=== PATIENT | female | born 1970 | race Caucasian/White ===

== ENCOUNTER 2022-04-27 15:49 | Inpatient (IN) ==
[2022-04-27] MEDS ORDERED: ALBUTEROL/IPRATROPIUM 3 ML NEB RESP TX STA (16:29)
[2022-04-27 17:00] LABS: Basophils # 0.1 10*3/uL (0.0-0.2); Basophils % 0.6 % (0.0-0.8); Eosinophils % 0.5 % (0.00-10.9); Hematocrit 41.5 VOL% (35.7-47.0); Hemoglobin 13.3 GM/DL (12.0-16.0); Immature Granulocytes % 0.5 %; Immature Granulocytes Absolute 0.04 #; Lymphocytes # 0.6 10*3/uL (1.4-4.0); Lymphocytes % 7.6 % (21.3-54.2); Mean Corpuscular Volume 93.5 FL (87-102); Mean Platelet Volume 10.5 FL (9.6-12.0); Monocytes # 0.2 10*3/uL (0.11-0.8); Monocytes % 2.9 % (1.7-12.7); Neutrophils % 87.9 % (38.7-73.9); Platelet Count 201 T/CUMM (130-400); Red Blood Count 4.44 MC/CUMM (3.8-5.5); Red Cell Distribution Width 13.9 % (9.3-17.3); White Blood Count 8.3 T/CUMM (4-12)
[2022-04-27 17:11] LABS: INR 1.3; Partial Thromboplastin Time 30.9 SECS (23.7-32.9)
[2022-04-27 17:33] LABS: Albumin 4.5 G/DL (3.4-5.0); Bilirubin,Total 1.2 MG/DL (0.20-1.00); Calcium 9.7 MG/DL (8.5-10.1); Osmolality,Calculated 277.1 MOS/KG (273-304); Total Protein 8.3 G/DL (6.4-8.2)
[2022-04-27 19:01] LABS: Bacteria,Urine Occasional /HPF (Few); Bilirubin,Urine Negative (Negative); Blood, Urine Small mg/dL (Negative); Glucose,Urine (UA) 50 mg/dL (Negative); Ketones,Urine Negative (Negative); Mucus,Urine Moderate /LPF (Occasional); Nitrite,Urine Negative (Negative); Protein,Urine 30 mg/dL (Negative); Squamous Epithelial Cell,Urine Few /HPF (0-10); Urine Appearance CLOUDY (Clear); Urine Color Yellow (Yellow); Urine Specific Gravity 1.027 (1.001-1.035); Urine Urobilinogen < 2.0 eU/dL (<2.0)
[2022-04-27] MEDS ORDERED: FUROSEMIDE 100 MG/10 ML VIAL ONE (19:23)
[2022-04-27] MEDS ORDERED: FUROSEMIDE 40 MG/4 ML VIAL IV STA (19:24)
[2022-04-27] MEDS ORDERED: LEVOFLOXACIN INJ 500 MG/100 ML PREMIX IV STA (19:25)
[2022-04-27] MEDS ORDERED: LEVOFLOXACIN INJ 500 MG/100 ML PREMIX IV ONE (19:26)
[2022-04-27] MEDS ORDERED: guaiFENesin/DM ER 600-30 MG TABLET PO PRN (19:55)
[2022-04-27] MEDS ORDERED: hydrALAZINE 20 MG/1 ML VIAL IV PRN (19:55)
[2022-04-27] MEDS ORDERED: ONDANSETRON 4 MG TABLET PO PRN (19:58)
[2022-04-27] MEDS ORDERED: ATORVASTATIN 10 MG TABLET PO SCH (21:00)
[2022-04-27] MEDS: FERROUS SULFATE 325 MG TABLET PO SCH (21:10)
[2022-04-27] MEDS: ENOXAPARIN 80 MG/0.8 ML SYRINGE SUBCUT SCH (21:15)
[2022-04-27] MEDS: INSULIN REGULAR 100 UNIT/ML SUBCUT SCH (21:19)
[2022-04-27] MEDS: ONDANSETRON 4 MG/2 ML VIAL IV PRN (21:50)
[2022-04-28] MEDS: ALBUTEROL 2.5 MG/3 ML NEB RESP TX SCH ×5 (00:55→19:30)
[2022-04-28] MEDS ORDERED: INFLUENZA VIRUS VACCINE 0.5 ML SYRINGE IM ONE (00:57)
[2022-04-28 04:58] LABS: Basophils % 0.4 % (0.0-0.8); Eosinophils % 0.1 % (0.00-10.9); Hematocrit 37.7 VOL% (35.7-47.0); Hemoglobin 12.3 GM/DL (12.0-16.0); Immature Granulocytes % 0.7 %; Immature Granulocytes Absolute 0.05 #; Lymphocytes % 13.4 % (21.3-54.2); Mean Corpuscular HGB Conc 32.6 GM/DL (32-36); Mean Corpuscular Volume 92.4 FL (87-102); Mean Platelet Volume 10.7 FL (9.6-12.0); Monocytes # 0.3 10*3/uL (0.11-0.8); Monocytes % 4.8 % (1.7-12.7); Neutrophils % 80.6 % (38.7-73.9); Platelet Count 195 T/CUMM (130-400); Red Blood Count 4.08 MC/CUMM (3.8-5.5); Red Cell Distribution Width 13.9 % (9.3-17.3); White Blood Count 7.1 T/CUMM (4-12)
[2022-04-28 05:07] LABS: INR 1.3; PT Patient Result 13.9 SECS (10.1-12.1)
[2022-04-28] MEDS: LEVOTHYROXINE 75 MCG TABLET PO SCH (05:08)
[2022-04-28 05:17] LABS: Albumin 3.6 G/DL (3.4-5.0); Bilirubin,Total 1.3 MG/DL (0.20-1.00); Calcium 8.9 MG/DL (8.5-10.1); Osmolality,Calculated 272.4 MOS/KG (273-304); Risk Ratio 4.44; Total Protein 7.4 G/DL (6.4-8.2); VLDL Cholesterol 24.8 MG/DL
[2022-04-28] MEDS ORDERED: MAGNESIUM SULF RIDER 2 GM/50 ML PREMIX IV ONE (07:41)
[2022-04-28] MEDS: PANTOPRAZOLE 40 MG TABLET PO SCH (09:00)
[2022-04-28] MEDS ORDERED: LEVOTHYROXINE 200 MCG TABLET PO SCH (09:00)
[2022-04-28] MEDS: DULoxetine 30 MG CAPSULE PO SCH (09:00)
[2022-04-28] MEDS: FERROUS SULFATE 325 MG TABLET PO SCH ×2 (09:00→22:26)
[2022-04-28] MEDS: FUROSEMIDE 40 MG/4 ML VIAL IV SCH ×2 (09:00→16:00)
[2022-04-28] MEDS: ASPIRIN EC 81 MG TABLET PO SCH (09:00)
[2022-04-28] MEDS: POTASSIUM CHLORIDE 20 MEQ TABLET PO SCH (09:00)
[2022-04-28] MEDS: ENOXAPARIN 80 MG/0.8 ML SYRINGE SUBCUT SCH ×2 (09:01→22:27)
[2022-04-28] MEDS: METOPROLOL TARTRATE 25 MG TABLET PO SCH (09:09)
[2022-04-28] MEDS: INSULIN REGULAR 100 UNIT/ML SUBCUT SCH ×4 (09:12→22:26)
[2022-04-28] MEDS: ONDANSETRON 4 MG/2 ML VIAL IV PRN ×2 (14:54→22:26)
[2022-04-28] MEDS ORDERED: WARFARIN 5 MG TABLET PO SCH (18:00)
[2022-04-28] MEDS ORDERED: WARFARIN 3 MG TABLET PO SCH (18:00)
[2022-04-28] MEDS ORDERED: LEVOFLOXACIN INJ 500 MG/100 ML PREMIX IV SCH (21:00)
[2022-04-28] MEDS: ATORVASTATIN 40 MG TABLET PO SCH (22:26)
[2022-04-28] MEDS: ACETAMINOPHEN 325 MG TABLET PO PRN (23:49)
[2022-04-29] MEDS: ALBUTEROL 2.5 MG/3 ML NEB RESP TX SCH ×2 (00:30→07:04)
[2022-04-29 05:09] LABS: Basophils % 0.1 % (0.0-0.8); Hematocrit 33.4 VOL% (35.7-47.0); Hemoglobin 11.3 GM/DL (12.0-16.0); Immature Granulocytes % 0.8 %; Immature Granulocytes Absolute 0.06 #; Lymphocytes % 12.5 % (21.3-54.2); Mean Corpuscular HGB Conc 33.8 GM/DL (32-36); Mean Corpuscular Volume 89.1 FL (87-102); Mean Platelet Volume 10.6 FL (9.6-12.0); Monocytes # 0.3 10*3/uL (0.11-0.8); Monocytes % 3.9 % (1.7-12.7); Neutrophils % 82.7 % (38.7-73.9); Platelet Count 187 T/CUMM (130-400); Red Blood Count 3.75 MC/CUMM (3.8-5.5); White Blood Count 7.7 T/CUMM (4-12)
[2022-04-29 05:28] LABS: Calcium 9.3 MG/DL (8.5-10.1); Osmolality,Calculated 272.5 MOS/KG (273-304); Potassium 3.6 MMOL/L (3.5-5.1)
[2022-04-29] MEDS: LEVOTHYROXINE 75 MCG TABLET PO SCH (06:58)
[2022-04-29] MEDS ORDERED: MAGNESIUM SULF RIDER 2 GM/50 ML PREMIX IV ONE (07:47)
[2022-04-29 07:51] LABS: INR 1.2; PT Patient Result 13.2 SECS (10.1-12.1)
[2022-04-29] MEDS: FUROSEMIDE 40 MG/4 ML VIAL IV SCH ×2 (08:46→15:48)
[2022-04-29] MEDS: ENOXAPARIN 80 MG/0.8 ML SYRINGE SUBCUT SCH (08:48)
[2022-04-29] MEDS: ASPIRIN EC 81 MG TABLET PO SCH (08:49)
[2022-04-29] MEDS: POTASSIUM CHLORIDE 20 MEQ TABLET PO SCH (08:49)
[2022-04-29] MEDS: METOPROLOL TARTRATE 25 MG TABLET PO SCH (08:49)
[2022-04-29] MEDS: DULoxetine 30 MG CAPSULE PO SCH (08:49)
[2022-04-29] MEDS: FERROUS SULFATE 325 MG TABLET PO SCH ×2 (08:50→21:27)
[2022-04-29] MEDS: PANTOPRAZOLE 40 MG TABLET PO SCH (08:50)
[2022-04-29] MEDS: INSULIN REGULAR 100 UNIT/ML SUBCUT SCH ×4 (08:55→21:27)
[2022-04-29] MEDS ORDERED: ALBUTEROL 2.5 MG/3 ML NEB RESP TX PRN (09:38)
[2022-04-29] MEDS ORDERED: LACTULOSE 20 GM/30 ML UDCUP PO ONE (10:17)
[2022-04-29] MEDS: ALBUTEROL/IPRATROPIUM 3 ML NEB RESP TX SCH ×2 (13:30→19:10)
[2022-04-29] MEDS: WARFARIN 10 MG TABLET PO SCH (17:45)
[2022-04-29] MEDS: ENOXAPARIN 150 MG/ML SYRINGE SUBCUT SCH (21:25)
[2022-04-29] MEDS: ACETAMINOPHEN 325 MG TABLET PO PRN (21:26)
[2022-04-29] MEDS: ATORVASTATIN 40 MG TABLET PO SCH (21:26)
[2022-04-30] MEDS: ALBUTEROL/IPRATROPIUM 3 ML NEB RESP TX SCH ×4 (00:30→20:12)
[2022-04-30] MEDS: ACETAMINOPHEN 325 MG TABLET PO PRN ×2 (04:45→10:26)
[2022-04-30 05:17] LABS: Basophils % 0.3 % (0.0-0.8); Eosinophils % 0.1 % (0.00-10.9); Hematocrit 32.4 VOL% (35.7-47.0); Hemoglobin 10.9 GM/DL (12.0-16.0); Immature Granulocytes % 0.6 %; Immature Granulocytes Absolute 0.05 #; Lymphocytes # 1.2 10*3/uL (1.4-4.0); Lymphocytes % 15.1 % (21.3-54.2); Mean Corpuscular HGB Conc 33.6 GM/DL (32-36); Mean Corpuscular Volume 89.8 FL (87-102); Mean Platelet Volume 10.9 FL (9.6-12.0); Monocytes # 0.3 10*3/uL (0.11-0.8); Monocytes % 3.5 % (1.7-12.7); Neutrophils % 80.4 % (38.7-73.9); Platelet Count 207 T/CUMM (130-400); Red Blood Count 3.61 MC/CUMM (3.8-5.5); Red Cell Distribution Width 13.9 % (9.3-17.3); White Blood Count 7.7 T/CUMM (4-12)
[2022-04-30 05:23] LABS: INR 1.5; PT Patient Result 16.4 SECS (10.1-12.1)
[2022-04-30 05:32] LABS: Calcium 9.2 MG/DL (8.5-10.1); Osmolality,Calculated 266.8 MOS/KG (273-304); Potassium 3.5 MMOL/L (3.5-5.1)
[2022-04-30] MEDS: LEVOTHYROXINE 75 MCG TABLET PO SCH (06:31)
[2022-04-30] MEDS: INSULIN REGULAR 100 UNIT/ML SUBCUT SCH ×4 (08:32→21:57)
[2022-04-30] MEDS: FUROSEMIDE 40 MG/4 ML VIAL IV SCH ×2 (08:33→15:50)
[2022-04-30] MEDS: FERROUS SULFATE 325 MG TABLET PO SCH ×2 (08:33→21:57)
[2022-04-30] MEDS: POTASSIUM CHLORIDE 20 MEQ TABLET PO SCH (08:33)
[2022-04-30] MEDS: PANTOPRAZOLE 40 MG TABLET PO SCH (08:34)
[2022-04-30] MEDS: DULoxetine 30 MG CAPSULE PO SCH (08:34)
[2022-04-30] MEDS: ASPIRIN EC 81 MG TABLET PO SCH (08:34)
[2022-04-30] MEDS: METOPROLOL TARTRATE 25 MG TABLET PO SCH ×2 (08:34→21:57)
[2022-04-30] MEDS: ENOXAPARIN 150 MG/ML SYRINGE SUBCUT SCH ×2 (08:35→21:57)
[2022-04-30] MEDS: LEVOFLOXACIN INJ 750 MG/150 ML PREMIX IV SCH (08:52)
[2022-04-30] MEDS: LACTULOSE 20 GM/30 ML UDCUP PO SCH ×2 (09:35→21:57)
[2022-04-30] MEDS ORDERED: SODIUM CHLORIDE 0.65% NASAL SPRAY 45 ML BOTTLE BOTH NARES PRN (12:33)
[2022-04-30] MEDS: WARFARIN 10 MG TABLET PO SCH (17:18)
[2022-04-30] MEDS: ATORVASTATIN 40 MG TABLET PO SCH (21:57)
[2022-05-01] MEDS: ALBUTEROL/IPRATROPIUM 3 ML NEB RESP TX SCH ×4 (00:08→19:38)
[2022-05-01 04:58] LABS: Basophils % 0.4 % (0.0-0.8); Hematocrit 31.8 VOL% (35.7-47.0); Hemoglobin 10.7 GM/DL (12.0-16.0); Immature Granulocytes % 0.7 %; Immature Granulocytes Absolute 0.05 #; Lymphocytes # 1.2 10*3/uL (1.4-4.0); Lymphocytes % 17.4 % (21.3-54.2); Mean Corpuscular HGB Conc 33.6 GM/DL (32-36); Mean Corpuscular Volume 88.3 FL (87-102); Mean Platelet Volume 11.1 FL (9.6-12.0); Monocytes # 0.2 10*3/uL (0.11-0.8); Monocytes % 2.6 % (1.7-12.7); Neutrophils % 78.9 % (38.7-73.9); Platelet Count 226 T/CUMM (130-400); Red Cell Distribution Width 13.7 % (9.3-17.3)
[2022-05-01 05:07] LABS: INR 2.1; PT Patient Result 21.7 SECS (10.1-12.1)
[2022-05-01 05:23] LABS: Calcium 9.6 MG/DL (8.5-10.1); Osmolality,Calculated 264.4 MOS/KG (273-304); Potassium 3.8 MMOL/L (3.5-5.1)
[2022-05-01] MEDS: LEVOTHYROXINE 75 MCG TABLET PO SCH (06:29)
[2022-05-01] MEDS: LEVOFLOXACIN INJ 750 MG/150 ML PREMIX IV SCH (08:05)
[2022-05-01] MEDS: ENOXAPARIN 150 MG/ML SYRINGE SUBCUT SCH ×2 (08:07→21:59)
[2022-05-01] MEDS: DULoxetine 30 MG CAPSULE PO SCH (08:07)
[2022-05-01] MEDS: POTASSIUM CHLORIDE 20 MEQ TABLET PO SCH (08:08)
[2022-05-01] MEDS: ASPIRIN EC 81 MG TABLET PO SCH (08:08)
[2022-05-01] MEDS: PANTOPRAZOLE 40 MG TABLET PO SCH (08:08)
[2022-05-01] MEDS: METOPROLOL TARTRATE 25 MG TABLET PO SCH (08:08)
[2022-05-01] MEDS: FUROSEMIDE 40 MG/4 ML VIAL IV SCH (08:09)
[2022-05-01] MEDS: FERROUS SULFATE 325 MG TABLET PO SCH ×2 (08:10→21:59)
[2022-05-01] MEDS: INSULIN REGULAR 100 UNIT/ML SUBCUT SCH ×4 (08:10→21:59)
[2022-05-01] MEDS: LACTULOSE 20 GM/30 ML UDCUP PO SCH (08:11)
[2022-05-01] MEDS ORDERED: METOPROLOL TARTRATE 25 MG TABLET PO ONE (10:30)
[2022-05-01] MEDS ORDERED: BISACODYL 10 MG SUPP RECTAL ONE (11:07)
[2022-05-01] MEDS ORDERED: metOLazone 5 MG TABLET PO SCH (14:30)
[2022-05-01] MEDS ORDERED: FUROSEMIDE 40 MG/4 ML VIAL IV SCH (16:00)
[2022-05-01] MEDS: WARFARIN 7.5 MG TABLET PO SCH (17:48)
[2022-05-01] MEDS ORDERED: INSULIN GLARGINE 100 UNIT/ML SUBCUT SCH (21:00)
[2022-05-01] MEDS: ATORVASTATIN 40 MG TABLET PO SCH (21:59)
[2022-05-01] MEDS: METOPROLOL TARTRATE 50 MG TABLET PO SCH (21:59)
[2022-05-01] MEDS: ACETAMINOPHEN 325 MG TABLET PO PRN (21:59)
[2022-05-02] MEDS: ALBUTEROL/IPRATROPIUM 3 ML NEB RESP TX SCH ×4 (00:53→19:33)
[2022-05-02 05:12] LABS: Basophils % 0.1 % (0.0-0.8); Hematocrit 30.4 VOL% (35.7-47.0); Hemoglobin 10.3 GM/DL (12.0-16.0); Immature Granulocytes % 1.5 %; Lymphocytes % 14.8 % (21.3-54.2); Mean Corpuscular HGB Conc 33.9 GM/DL (32-36); Mean Corpuscular Volume 88.4 FL (87-102); Mean Platelet Volume 10.3 FL (9.6-12.0); Monocytes # 0.3 10*3/uL (0.11-0.8); Monocytes % 4.6 % (1.7-12.7); NRBC # 0.02 10*3/uL; Platelet Count 235 T/CUMM (130-400); Red Blood Count 3.44 MC/CUMM (3.8-5.5); Red Cell Distribution Width 13.4 % (9.3-17.3); White Blood Count 6.8 T/CUMM (4-12)
[2022-05-02 05:24] LABS: INR 2.4; PT Patient Result 24.5 SECS (10.1-12.1)
[2022-05-02 05:27] LABS: Calcium 9.5 MG/DL (8.5-10.1); Osmolality,Calculated 271.7 MOS/KG (273-304)
[2022-05-02] MEDS: LEVOTHYROXINE 75 MCG TABLET PO SCH (06:24)
[2022-05-02 08:04] LABS: Arterial Base Excess iSTAT 7 MMOL/L (-2.5-2.5); Arterial Bicarbonate iSTAT 29.8 MMOL/L (20-26); Arterial O2 Saturation iSTAT 91 % (95-100); Arterial PCO2 iSTAT 37 MM HG (35-48); Arterial PO2 iSTAT 54 MM HG (80-95); Arterial Total CO2 iSTAT 31 MMO/L (23-27); Arterial pH iSTAT 7.518 (7.35-7.45)
[2022-05-02] MEDS: INSULIN REGULAR 100 UNIT/ML SUBCUT SCH ×4 (09:46→21:59)
[2022-05-02] MEDS: ONDANSETRON 4 MG/2 ML VIAL IV PRN (09:47)
[2022-05-02] MEDS: ENOXAPARIN 150 MG/ML SYRINGE SUBCUT SCH (09:48)
[2022-05-02] MEDS: MEROPENEM 500 MG in SODIUM CHLORIDE 0.9% 100 ML IV SCH ×3 (09:48→21:59)
[2022-05-02] MEDS: FUROSEMIDE 40 MG/4 ML VIAL IV SCH ×2 (09:49→16:01)
[2022-05-02] MEDS: DULoxetine 30 MG CAPSULE PO SCH (09:50)
[2022-05-02] MEDS: PANTOPRAZOLE 40 MG TABLET PO SCH (09:50)
[2022-05-02] MEDS: METOPROLOL TARTRATE 50 MG TABLET PO SCH ×2 (09:51→21:59)
[2022-05-02] MEDS: ASPIRIN EC 81 MG TABLET PO SCH (09:51)
[2022-05-02] MEDS: POTASSIUM CHLORIDE 20 MEQ TABLET PO SCH ×3 (09:52→12:19)
[2022-05-02] MEDS: FERROUS SULFATE 325 MG TABLET PO SCH ×2 (09:53→21:59)
[2022-05-02] MEDS ORDERED: POTASSIUM CHLORIDE 20 MEQ TABLET PO ONE (10:30)
[2022-05-02] MEDS: methylPREDNISolone SOD SUC 40 MG/1 ML VIAL IV SCH ×2 (12:17→17:55)
[2022-05-02] MEDS: WARFARIN 7.5 MG TABLET PO SCH (17:54)
[2022-05-02] MEDS: ACETAMINOPHEN 325 MG TABLET PO PRN (17:57)
[2022-05-02] MEDS ORDERED: INSULIN GLARGINE 100 UNIT/ML SUBCUT SCH (21:00)
[2022-05-02] MEDS: ATORVASTATIN 40 MG TABLET PO SCH (21:59)
[2022-05-03] MEDS: ALBUTEROL/IPRATROPIUM 3 ML NEB RESP TX SCH ×4 (00:12→19:19)
[2022-05-03] MEDS: ACETAMINOPHEN 325 MG TABLET PO PRN (00:28)
[2022-05-03] MEDS: methylPREDNISolone SOD SUC 40 MG/1 ML VIAL IV SCH ×3 (02:43→14:46)
[2022-05-03 05:41] LABS: Hematocrit 29.9 VOL% (35.7-47.0); Hemoglobin 10.2 GM/DL (12.0-16.0); Immature Granulocytes % 1.7 %; Immature Granulocytes Absolute 0.15 #; Lymphocytes # 0.9 10*3/uL (1.4-4.0); Mean Corpuscular HGB Conc 34.1 GM/DL (32-36); Mean Corpuscular Volume 88.5 FL (87-102); Mean Platelet Volume 10.3 FL (9.6-12.0); Monocytes # 0.4 10*3/uL (0.11-0.8); Monocytes % 4.6 % (1.7-12.7); NRBC # 0.03 10*3/uL; Neutrophils % 83.7 % (38.7-73.9); Platelet Count 288 T/CUMM (130-400); Red Blood Count 3.38 MC/CUMM (3.8-5.5); Red Cell Distribution Width 13.4 % (9.3-17.3); White Blood Count 8.8 T/CUMM (4-12)
[2022-05-03 05:49] LABS: INR 2.3; PT Patient Result 24.4 SECS (10.1-12.1)
[2022-05-03 06:02] LABS: Calcium 9.6 MG/DL (8.5-10.1); Osmolality,Calculated 275.4 MOS/KG (273-304); Potassium 3.3 MMOL/L (3.5-5.1)
[2022-05-03] MEDS: LEVOTHYROXINE 75 MCG TABLET PO SCH (06:24)
[2022-05-03] MEDS: MEROPENEM 500 MG in SODIUM CHLORIDE 0.9% 100 ML IV SCH ×4 (06:27→21:01)
[2022-05-03] MEDS ORDERED: POTASSIUM CHLORIDE 20 MEQ TABLET PO ONE (07:43)
[2022-05-03] MEDS ORDERED: HEPARIN DRIP 25,000 UNITS/500 ML PREMIX IV SCH (08:30)
[2022-05-03] MEDS: INSULIN REGULAR 100 UNIT/ML SUBCUT SCH ×4 (08:39→20:58)
[2022-05-03] MEDS ORDERED: WARFARIN 2 MG TABLET PO ONE ×2 (09:00→11:00)
[2022-05-03] MEDS: METOPROLOL TARTRATE 50 MG TABLET PO SCH ×2 (10:15→21:00)
[2022-05-03] MEDS: metOLazone 2.5 MG TABLET PO SCH (10:15)
[2022-05-03] MEDS: DULoxetine 30 MG CAPSULE PO SCH (10:15)
[2022-05-03] MEDS: ASPIRIN EC 81 MG TABLET PO SCH (10:17)
[2022-05-03] MEDS: FERROUS SULFATE 325 MG TABLET PO SCH ×2 (10:17→21:00)
[2022-05-03] MEDS: POTASSIUM CHLORIDE 20 MEQ TABLET PO SCH (10:18)
[2022-05-03] MEDS: PANTOPRAZOLE 40 MG TABLET PO SCH (10:21)
[2022-05-03] MEDS: FUROSEMIDE 40 MG/4 ML VIAL IV SCH ×3 (14:47→21:00)
[2022-05-03] MEDS ORDERED: INSULIN REGULAR 100 UNIT/ML SUBCUT ONE (15:02)
[2022-05-03] MEDS: WARFARIN 7.5 MG TABLET PO SCH (18:05)
[2022-05-03] MEDS: INSULIN GLARGINE 100 UNIT/ML SUBCUT SCH (20:59)
[2022-05-03] MEDS: ATORVASTATIN 40 MG TABLET PO SCH (21:00)
[2022-05-04] MEDS: ALBUTEROL/IPRATROPIUM 3 ML NEB RESP TX SCH ×4 (00:31→19:30)
[2022-05-04] MEDS: methylPREDNISolone SOD SUC 40 MG/1 ML VIAL IV SCH ×2 (04:24→15:14)
[2022-05-04] MEDS: MEROPENEM 500 MG in SODIUM CHLORIDE 0.9% 100 ML IV SCH ×4 (04:25→23:11)
[2022-05-04 05:05] LABS: Basophils # 0.1 10*3/uL (0.0-0.2); Basophils % 0.3 % (0.0-0.8); Hematocrit 28.7 VOL% (35.7-47.0); Immature Granulocytes % 2.6 %; Immature Granulocytes Absolute 0.49 #; Lymphocytes # 2.6 10*3/uL (1.4-4.0); Lymphocytes % 13.7 % (21.3-54.2); Mean Corpuscular HGB Conc 34.8 GM/DL (32-36); Mean Corpuscular Volume 86.4 FL (87-102); Mean Platelet Volume 10.6 FL (9.6-12.0); Monocytes # 0.7 10*3/uL (0.11-0.8); Monocytes % 3.7 % (1.7-12.7); NRBC # 0.14 10*3/uL; Neutrophils % 79.7 % (38.7-73.9); Platelet Count 367 T/CUMM (130-400); Red Blood Count 3.32 MC/CUMM (3.8-5.5); Red Cell Distribution Width 13.5 % (9.3-17.3); White Blood Count 18.6 T/CUMM (4-12)
[2022-05-04 05:09] LABS: PT Patient Result 30.3 SECS (10.1-12.1)
[2022-05-04 05:56] LABS: Osmolality,Calculated 274.4 MOS/KG (273-304); Potassium 2.9 MMOL/L (3.5-5.1)
[2022-05-04] MEDS: LEVOTHYROXINE 75 MCG TABLET PO SCH (07:25)
[2022-05-04] MEDS: FUROSEMIDE 40 MG/4 ML VIAL IV SCH ×2 (08:48→16:20)
[2022-05-04] MEDS: ASPIRIN EC 81 MG TABLET PO SCH (08:57)
[2022-05-04] MEDS: FERROUS SULFATE 325 MG TABLET PO SCH ×2 (08:57→21:22)
[2022-05-04] MEDS: DULoxetine 30 MG CAPSULE PO SCH (08:58)
[2022-05-04] MEDS: POTASSIUM CHLORIDE 20 MEQ TABLET PO SCH ×3 (08:58→12:53)
[2022-05-04] MEDS: METOPROLOL TARTRATE 50 MG TABLET PO SCH ×2 (08:59→21:22)
[2022-05-04] MEDS: INSULIN REGULAR 100 UNIT/ML SUBCUT SCH ×4 (09:01→22:18)
[2022-05-04] MEDS: INSULIN GLARGINE 100 UNIT/ML SUBCUT SCH ×2 (09:02→21:23)
[2022-05-04] MEDS: metOLazone 2.5 MG TABLET PO SCH (09:10)
[2022-05-04] MEDS: PANTOPRAZOLE 40 MG TABLET PO SCH (09:11)
[2022-05-04] MEDS ORDERED: BENZOCAINE/MENTHOL LOZENGE 18/BOX PO PRN (09:20)
[2022-05-04 13:40] LABS: Calcium 9.1 MG/DL (8.5-10.1); Osmolality,Calculated 281.5 MOS/KG (273-304); Potassium 3.6 MMOL/L (3.5-5.1)
[2022-05-04] MEDS: WARFARIN 4 MG TABLET PO SCH (17:25)
[2022-05-04] MEDS: ATORVASTATIN 40 MG TABLET PO SCH (21:22)
[2022-05-04] MEDS: ACETAMINOPHEN 325 MG TABLET PO PRN (21:25)
[2022-05-05] MEDS: ALBUTEROL/IPRATROPIUM 3 ML NEB RESP TX SCH ×4 (01:45→20:41)
[2022-05-05] MEDS: INSULIN REGULAR 100 UNIT/ML SUBCUT SCH ×5 (03:09→21:00)
[2022-05-05] MEDS: methylPREDNISolone SOD SUC 40 MG/1 ML VIAL IV SCH ×2 (03:11→14:58)
[2022-05-05] MEDS: MEROPENEM 500 MG in SODIUM CHLORIDE 0.9% 100 ML IV SCH ×4 (03:14→21:03)
[2022-05-05 05:22] LABS: Calcium 9.3 MG/DL (8.5-10.1); Osmolality,Calculated 275.2 MOS/KG (273-304)
[2022-05-05] MEDS: LEVOTHYROXINE 75 MCG TABLET PO SCH (05:24)
[2022-05-05 05:37] LABS: Basophils # 0.1 10*3/uL (0.0-0.2); Basophils % 0.3 % (0.0-0.8); Hemoglobin 10.2 GM/DL (12.0-16.0); Immature Granulocytes % 4.1 %; Immature Granulocytes Absolute 0.71 #; Lymphocytes # 2.5 10*3/uL (1.4-4.0); Lymphocytes % 14.2 % (21.3-54.2); Mean Corpuscular Volume 87.2 FL (87-102); Mean Platelet Volume 10.3 FL (9.6-12.0); Monocytes # 0.8 10*3/uL (0.11-0.8); Monocytes % 4.3 % (1.7-12.7); NRBC # 0.15 10*3/uL; Neutrophils % 77.1 % (38.7-73.9); Platelet Count 371 T/CUMM (130-400); Red Blood Count 3.44 MC/CUMM (3.8-5.5); Red Cell Distribution Width 13.5 % (9.3-17.3); White Blood Count 17.5 T/CUMM (4-12)
[2022-05-05 05:46] LABS: INR 2.9; PT Patient Result 29.8 SECS (10.1-12.1)
[2022-05-05 05:56] LABS: Hypochromia Slight; Lymphocytes 9 % (20-55); Microcytosis Slight; Nucleated Red Blood Cells 1 /100 WBC (0-5); Platelet Estimate Adequate; Total Cells Counted 100
[2022-05-05] MEDS: FUROSEMIDE 40 MG/4 ML VIAL IV SCH ×2 (08:37→17:06)
[2022-05-05] MEDS: INSULIN GLARGINE 100 UNIT/ML SUBCUT SCH ×2 (08:38→21:01)
[2022-05-05] MEDS: DULoxetine 30 MG CAPSULE PO SCH (08:39)
[2022-05-05] MEDS: PANTOPRAZOLE 40 MG TABLET PO SCH (08:40)
[2022-05-05] MEDS: metOLazone 2.5 MG TABLET PO SCH (08:41)
[2022-05-05] MEDS: FERROUS SULFATE 325 MG TABLET PO SCH ×2 (08:41→20:58)
[2022-05-05] MEDS: ASPIRIN EC 81 MG TABLET PO SCH (08:41)
[2022-05-05] MEDS: METOPROLOL TARTRATE 50 MG TABLET PO SCH ×2 (08:41→20:58)
[2022-05-05] MEDS ORDERED: POTASSIUM CHLORIDE 20 MEQ TABLET PO SCH (09:00)
[2022-05-05] MEDS: WARFARIN 4 MG TABLET PO SCH (17:45)
[2022-05-05] MEDS: ATORVASTATIN 40 MG TABLET PO SCH (20:58)
[2022-05-05] MEDS: ACETAMINOPHEN 325 MG TABLET PO PRN (21:19)
[2022-05-06] MEDS: ALBUTEROL/IPRATROPIUM 3 ML NEB RESP TX SCH ×4 (00:40→20:33)
[2022-05-06] MEDS: methylPREDNISolone SOD SUC 40 MG/1 ML VIAL IV SCH ×2 (03:10→14:11)
[2022-05-06] MEDS: MEROPENEM 500 MG in SODIUM CHLORIDE 0.9% 100 ML IV SCH ×4 (03:10→21:45)
[2022-05-06 05:03] LABS: Basophils # 0.1 10*3/uL (0.0-0.2); Basophils % 0.3 % (0.0-0.8); Eosinophils % 0.1 % (0.00-10.9); Hematocrit 30.5 VOL% (35.7-47.0); Hemoglobin 10.3 GM/DL (12.0-16.0); Immature Granulocytes % 6.7 %; Immature Granulocytes Absolute 1.03 #; Lymphocytes % 19.4 % (21.3-54.2); Mean Corpuscular HGB Conc 33.8 GM/DL (32-36); Mean Corpuscular Volume 86.9 FL (87-102); Monocytes # 0.8 10*3/uL (0.11-0.8); Monocytes % 4.9 % (1.7-12.7); NRBC # 0.22 10*3/uL; Neutrophils % 68.6 % (38.7-73.9); Platelet Count 402 T/CUMM (130-400); Red Blood Count 3.51 MC/CUMM (3.8-5.5); Red Cell Distribution Width 13.7 % (9.3-17.3); White Blood Count 15.4 T/CUMM (4-12)
[2022-05-06 05:09] LABS: INR 2.3; PT Patient Result 23.6 SECS (10.1-12.1)
[2022-05-06 05:27] LABS: Band Neutrophils 1 % (0-10); Lymphocytes 18 % (20-55); Nucleated Red Blood Cells 1 /100 WBC (0-5); Total Cells Counted 100
[2022-05-06 05:28] LABS: Hypochromia Slight; Microcytosis Slight; Polychromasia Slight
[2022-05-06 05:29] LABS: Platelet Estimate Increased
[2022-05-06 05:42] LABS: Calcium 9.5 MG/DL (8.5-10.1); Osmolality,Calculated 274.1 MOS/KG (273-304); Potassium 2.7 MMOL/L (3.5-5.1)
[2022-05-06] MEDS: LEVOTHYROXINE 75 MCG TABLET PO SCH (05:53)
[2022-05-06] MEDS ORDERED: POTASSIUM CHLORIDE 20 MEQ TABLET PO ONE (07:28)
[2022-05-06] MEDS: FUROSEMIDE 40 MG/4 ML VIAL IV SCH (07:56)
[2022-05-06] MEDS: INSULIN REGULAR 100 UNIT/ML SUBCUT SCH ×4 (07:57→21:41)
[2022-05-06] MEDS: POTASSIUM CHLORIDE 20 MEQ TABLET PO SCH ×2 (07:58→08:00)
[2022-05-06] MEDS: DULoxetine 30 MG CAPSULE PO SCH (08:01)
[2022-05-06] MEDS: METOPROLOL TARTRATE 50 MG TABLET PO SCH ×2 (08:01→21:41)
[2022-05-06] MEDS: ASPIRIN EC 81 MG TABLET PO SCH (08:01)
[2022-05-06] MEDS: metOLazone 2.5 MG TABLET PO SCH (08:01)
[2022-05-06] MEDS: FERROUS SULFATE 325 MG TABLET PO SCH ×2 (08:01→21:41)
[2022-05-06] MEDS: PANTOPRAZOLE 40 MG TABLET PO SCH (08:01)
[2022-05-06] MEDS: INSULIN GLARGINE 100 UNIT/ML SUBCUT SCH ×2 (09:06→21:41)
[2022-05-06] MEDS ORDERED: metOLazone 2.5 MG TABLET PO PRN (09:10)
[2022-05-06] MEDS ORDERED: SPIRONOLACTONE 25 MG TABLET PO SCH (09:30)
[2022-05-06] MEDS: FUROSEMIDE 40 MG TABLET PO SCH (15:43)
[2022-05-06] MEDS ORDERED: WARFARIN 5 MG TABLET PO SCH (18:00)
[2022-05-06] MEDS ORDERED: WARFARIN 10 MG TABLET PO SCH (18:00)
[2022-05-06] MEDS: ATORVASTATIN 40 MG TABLET PO SCH (21:40)
[2022-05-07] MEDS: ALBUTEROL/IPRATROPIUM 3 ML NEB RESP TX SCH ×4 (01:16→19:04)
[2022-05-07] MEDS: methylPREDNISolone SOD SUC 40 MG/1 ML VIAL IV SCH (02:58)
[2022-05-07 04:46] LABS: Basophils # 0.1 10*3/uL (0.0-0.2); Basophils % 0.3 % (0.0-0.8); Eosinophils % 0.1 % (0.00-10.9); Hematocrit 30.1 VOL% (35.7-47.0); Hemoglobin 10.2 GM/DL (12.0-16.0); Immature Granulocytes Absolute 1.04 #; Lymphocytes # 2.5 10*3/uL (1.4-4.0); Lymphocytes % 16.9 % (21.3-54.2); Mean Corpuscular HGB Conc 33.9 GM/DL (32-36); Mean Corpuscular Volume 87.8 FL (87-102); Mean Platelet Volume 9.8 FL (9.6-12.0); Monocytes % 6.6 % (1.7-12.7); NRBC # 0.15 10*3/uL; Neutrophils % 69.1 % (38.7-73.9); Platelet Count 371 T/CUMM (130-400); Red Blood Count 3.43 MC/CUMM (3.8-5.5); Red Cell Distribution Width 13.7 % (9.3-17.3); White Blood Count 14.9 T/CUMM (4-12)
[2022-05-07] MEDS: MEROPENEM 500 MG in SODIUM CHLORIDE 0.9% 100 ML IV SCH ×4 (04:49→21:02)
[2022-05-07 04:54] LABS: INR 1.9; PT Patient Result 20.1 SECS (10.1-12.1)
[2022-05-07 05:05] LABS: Calcium 9.4 MG/DL (8.5-10.1); Osmolality,Calculated 271.1 MOS/KG (273-304); Potassium 2.8 MMOL/L (3.5-5.1)
[2022-05-07 05:07] LABS: Band Neutrophils 2 % (0-10); Eosinophils 1 % (0-10); Hypochromia Slight; Lymphocytes 23 % (20-55); Microcytosis Slight; Platelet Estimate Adequate; Total Cells Counted 100
[2022-05-07] MEDS: LEVOTHYROXINE 75 MCG TABLET PO SCH (05:23)
[2022-05-07] MEDS: POTASSIUM CHLORIDE 20 MEQ TABLET PO SCH (09:39)
[2022-05-07] MEDS: DULoxetine 30 MG CAPSULE PO SCH (09:40)
[2022-05-07] MEDS: FUROSEMIDE 40 MG TABLET PO SCH (09:40)
[2022-05-07] MEDS: METOPROLOL TARTRATE 50 MG TABLET PO SCH ×2 (09:41→21:03)
[2022-05-07] MEDS: FERROUS SULFATE 325 MG TABLET PO SCH ×2 (09:41→21:03)
[2022-05-07] MEDS: PANTOPRAZOLE 40 MG TABLET PO SCH (09:41)
[2022-05-07] MEDS: ASPIRIN EC 81 MG TABLET PO SCH (09:41)
[2022-05-07] MEDS: INSULIN REGULAR 100 UNIT/ML SUBCUT SCH ×4 (09:42→21:03)
[2022-05-07] MEDS: INSULIN GLARGINE 100 UNIT/ML SUBCUT SCH ×2 (09:42→21:03)
[2022-05-07] MEDS ORDERED: POTASSIUM CHLORIDE 20 MEQ TABLET PO ONE (11:00)
[2022-05-07] MEDS: WARFARIN 7.5 MG TABLET PO SCH (17:38)
[2022-05-07] MEDS: glipiZIDE 5 MG TABLET PO SCH (17:39)
[2022-05-07] MEDS: ATORVASTATIN 40 MG TABLET PO SCH (21:03)
[2022-05-07] MEDS: ACETAMINOPHEN 325 MG TABLET PO PRN (21:45)
[2022-05-08] MEDS: ALBUTEROL/IPRATROPIUM 3 ML NEB RESP TX SCH ×4 (00:58→19:27)
[2022-05-08 04:42] LABS: Fungitell Quantitative Value < 31 pg/mL (<60 pg/mL)
[2022-05-08] MEDS: MEROPENEM 500 MG in SODIUM CHLORIDE 0.9% 100 ML IV SCH (04:58)
[2022-05-08] MEDS: LEVOTHYROXINE 75 MCG TABLET PO SCH (05:37)
[2022-05-08 05:58] LABS: Basophils # 0.1 10*3/uL (0.0-0.2); Basophils % 0.4 % (0.0-0.8); Eosinophils # 0.1 10*3/uL (0.0-0.87); Eosinophils % 0.9 % (0.00-10.9); Hematocrit 28.7 VOL% (35.7-47.0); Hemoglobin 9.6 GM/DL (12.0-16.0); Immature Granulocytes % 6.6 %; Immature Granulocytes Absolute 1.08 #; Lymphocytes # 3.3 10*3/uL (1.4-4.0); Mean Corpuscular HGB Conc 33.4 GM/DL (32-36); Mean Corpuscular Volume 88.6 FL (87-102); Mean Platelet Volume 9.9 FL (9.6-12.0); Monocytes # 1.2 10*3/uL (0.11-0.8); Monocytes % 7.6 % (1.7-12.7); NRBC # 0.12 10*3/uL; Neutrophils % 64.5 % (38.7-73.9); Platelet Count 376 T/CUMM (130-400); Red Blood Count 3.24 MC/CUMM (3.8-5.5); Red Cell Distribution Width 13.9 % (9.3-17.3); White Blood Count 16.4 T/CUMM (4-12)
[2022-05-08 06:07] LABS: PT Patient Result 20.8 SECS (10.1-12.1)
[2022-05-08 06:23] LABS: Eosinophils 3 % (0-10); Hypochromia Slight; Lymphocytes 17 % (20-55); Microcytosis Slight; Platelet Estimate Adequate; Total Cells Counted 100
[2022-05-08 06:29] LABS: Calcium 9.2 MG/DL (8.5-10.1); Osmolality,Calculated 271.5 MOS/KG (273-304); Potassium 2.9 MMOL/L (3.5-5.1)
[2022-05-08] MEDS: PANTOPRAZOLE 40 MG TABLET PO SCH (10:22)
[2022-05-08] MEDS: POTASSIUM CHLORIDE 20 MEQ TABLET PO SCH ×2 (10:22→21:57)
[2022-05-08] MEDS: FERROUS SULFATE 325 MG TABLET PO SCH ×2 (10:23→21:57)
[2022-05-08] MEDS: DULoxetine 30 MG CAPSULE PO SCH (10:23)
[2022-05-08] MEDS: ASPIRIN EC 81 MG TABLET PO SCH (10:24)
[2022-05-08] MEDS: FUROSEMIDE 40 MG TABLET PO SCH (10:24)
[2022-05-08] MEDS: METOPROLOL TARTRATE 50 MG TABLET PO SCH ×2 (10:24→21:57)
[2022-05-08] MEDS: predniSONE 20 MG TABLET PO SCH (10:24)
[2022-05-08] MEDS: INSULIN REGULAR 100 UNIT/ML SUBCUT SCH ×4 (10:26→21:58)
[2022-05-08] MEDS: glipiZIDE 5 MG TABLET PO SCH ×2 (10:27→17:03)
[2022-05-08] MEDS: INSULIN GLARGINE 100 UNIT/ML SUBCUT SCH ×2 (10:27→21:57)
[2022-05-08] MEDS: WARFARIN 7.5 MG TABLET PO SCH (17:44)
[2022-05-08] MEDS ORDERED: WARFARIN 5 MG TABLET PO ONE (18:00)
[2022-05-08] MEDS: ATORVASTATIN 40 MG TABLET PO SCH (21:57)
[2022-05-08] MEDS: ACETAMINOPHEN 325 MG TABLET PO PRN (22:25)
[2022-05-09] MEDS: ALBUTEROL/IPRATROPIUM 3 ML NEB RESP TX SCH ×3 (00:23→13:38)
[2022-05-09 05:08] LABS: Basophils % 0.3 % (0.0-0.8); Eosinophils # 0.1 10*3/uL (0.0-0.87); Eosinophils % 0.8 % (0.00-10.9); Hematocrit 27.7 VOL% (35.7-47.0); Hemoglobin 9.3 GM/DL (12.0-16.0); Immature Granulocytes % 5.7 %; Immature Granulocytes Absolute 0.86 #; Lymphocytes # 3.2 10*3/uL (1.4-4.0); Lymphocytes % 21.2 % (21.3-54.2); Mean Corpuscular HGB Conc 33.6 GM/DL (32-36); Mean Corpuscular Volume 89.6 FL (87-102); Mean Platelet Volume 9.7 FL (9.6-12.0); Monocytes # 0.9 10*3/uL (0.11-0.8); Monocytes % 5.8 % (1.7-12.7); NRBC # 0.05 10*3/uL; Neutrophils % 66.2 % (38.7-73.9); Platelet Count 357 T/CUMM (130-400); Red Blood Count 3.09 MC/CUMM (3.8-5.5); Red Cell Distribution Width 14.3 % (9.3-17.3); White Blood Count 15.2 T/CUMM (4-12)
[2022-05-09 05:24] LABS: Calcium 9.1 MG/DL (8.5-10.1); Osmolality,Calculated 272.5 MOS/KG (273-304); Potassium 3.4 MMOL/L (3.5-5.1)
[2022-05-09 05:29] LABS: PT Patient Result 21.5 SECS (10.1-12.1)
[2022-05-09 05:40] LABS: Eosinophils 1 % (0-10); Lymphocytes 31 % (20-55); Platelet Estimate Adequate; Total Cells Counted 100
[2022-05-09] MEDS: LEVOTHYROXINE 75 MCG TABLET PO SCH (05:50)
[2022-05-09] MEDS: INSULIN REGULAR 100 UNIT/ML SUBCUT SCH ×2 (08:28→12:37)
[2022-05-09] MEDS: FERROUS SULFATE 325 MG TABLET PO SCH (08:38)
[2022-05-09] MEDS: POTASSIUM CHLORIDE 20 MEQ TABLET PO SCH (08:38)
[2022-05-09] MEDS: ASPIRIN EC 81 MG TABLET PO SCH (08:38)
[2022-05-09] MEDS: glipiZIDE 5 MG TABLET PO SCH (08:39)
[2022-05-09] MEDS: predniSONE 20 MG TABLET PO SCH (08:39)
[2022-05-09] MEDS: METOPROLOL TARTRATE 50 MG TABLET PO SCH (08:39)
[2022-05-09] MEDS: FUROSEMIDE 40 MG TABLET PO SCH (08:39)
[2022-05-09] MEDS: DULoxetine 30 MG CAPSULE PO SCH (08:39)
[2022-05-09] MEDS: PANTOPRAZOLE 40 MG TABLET PO SCH (08:39)
[2022-05-09] MEDS: INSULIN GLARGINE 100 UNIT/ML SUBCUT SCH (09:54)
[2022-05-09 13:24] VITALS: BP 100/66
[2022-05-09] MEDS ORDERED: glipiZIDE 5 MG TABLET PO SCH (16:30)
== END 2022-05-09 15:10 | disposition home or self-care (01) | DRG 291 ==
LOC: N.ED 15:49 → N.EDINP 19:55 → SUATTDRO 19:55 → N.TELES 21:14
PROVIDERS: ADMIT Hospitalist; ATTEND Internal Medicine

== ENCOUNTER 2022-05-25 19:00 | Inpatient (IN) ==
[2022-05-25] MEDS ORDERED: FUROSEMIDE 100 MG/10 ML VIAL IV STA (23:16)
[2022-05-25 23:49] LABS: Basophils # 0.1 10*3/uL (0.0-0.2); Basophils % 0.8 % (0.0-0.8); Eosinophils # 0.3 10*3/uL (0.0-0.87); Eosinophils % 2.9 % (0.00-10.9); Hematocrit 27.8 VOL% (35.7-47.0); Hemoglobin 8.4 GM/DL (12.0-16.0); Immature Granulocytes % 1.4 %; Immature Granulocytes Absolute 0.12 #; Lymphocytes # 2.7 10*3/uL (1.4-4.0); Lymphocytes % 31.5 % (21.3-54.2); Mean Corpuscular HGB Conc 30.2 GM/DL (32-36); Mean Corpuscular Volume 95.2 FL (87-102); Monocytes # 0.5 10*3/uL (0.11-0.8); Monocytes % 5.8 % (1.7-12.7); NRBC # 0.28 10*3/uL; Neutrophils % 57.6 % (38.7-73.9); Platelet Count 319 T/CUMM (130-400); Red Blood Count 2.92 MC/CUMM (3.8-5.5); Red Cell Distribution Width 18.6 % (9.3-17.3); White Blood Count 8.7 T/CUMM (4-12)
[2022-05-26 00:19] LABS: Albumin 3.2 G/DL (3.4-5.0); Bilirubin,Total 1.1 MG/DL (0.20-1.00); Calcium 8.7 MG/DL (8.5-10.1); Osmolality,Calculated 276.8 MOS/KG (273-304); Potassium 3.3 MMOL/L (3.5-5.1); Total Protein 6.7 G/DL (6.4-8.2)
[2022-05-26] MEDS ORDERED: GLUCAGON 1 MG VIAL IM PRN (04:00)
[2022-05-26] MEDS ORDERED: hydrALAZINE 20 MG/1 ML VIAL IV PRN (04:00)
[2022-05-26] MEDS ORDERED: ONDANSETRON 4 MG/2 ML VIAL IV PRN (04:00)
[2022-05-26] MEDS ORDERED: MORPHINE 2 MG/1 ML SYRINGE IV PRN (04:00)
[2022-05-26] MEDS ORDERED: POTASSIUM CHLORIDE 20 MEQ TABLET PO STA (04:08)
[2022-05-26] MEDS ORDERED: DEXTROSE 10% 250 ML BAG IV PRN (04:35)
[2022-05-26 05:33] LABS: PT Patient Result 67.8 SECS (10.1-12.1)
[2022-05-26 05:50] LABS: INR 7.1
[2022-05-26 05:54] LABS: Free T4 (Free Thyroxine) 2.09 NG/DL (0.76-1.46); Thyroid Stimulating Hormone 3.47 uIU/ml (0.358-3.74)
[2022-05-26 07:39] LABS: % Iron Saturation 14.7 % (18-50); Ferritin 376.4 ng/mL (8-252)
[2022-05-26 08:15] LABS: Basophils # 0.1 10*3/uL (0.0-0.2); Basophils % 0.8 % (0.0-0.8); Eosinophils # 0.3 10*3/uL (0.0-0.87); Eosinophils % 2.7 % (0.00-10.9); Hematocrit 28.8 VOL% (35.7-47.0); Hemoglobin 8.5 GM/DL (12.0-16.0); Immature Granulocytes % 1.3 %; Immature Granulocytes Absolute 0.12 #; Lymphocytes # 2.7 10*3/uL (1.4-4.0); Lymphocytes % 29.7 % (21.3-54.2); Mean Corpuscular HGB Conc 29.5 GM/DL (32-36); Mean Platelet Volume 10.7 FL (9.6-12.0); Monocytes # 0.4 10*3/uL (0.11-0.8); Monocytes % 4.7 % (1.7-12.7); Neutrophils % 60.8 % (38.7-73.9); Platelet Count 341 T/CUMM (130-400); Red Blood Count 2.97 MC/CUMM (3.8-5.5); Red Cell Distribution Width 18.6 % (9.3-17.3); White Blood Count 9.2 T/CUMM (4-12)
[2022-05-26 08:21] LABS: Folate 13.62 NG/ML (5.38-24.0)
[2022-05-26 08:38] LABS: Calcium 8.8 MG/DL (8.5-10.1); Potassium 3.2 MMOL/L (3.5-5.1)
[2022-05-26] MEDS: FUROSEMIDE 40 MG/4 ML VIAL IV SCH ×2 (09:10→16:02)
[2022-05-26] MEDS: INSULIN LISPRO 100 UNIT/ML SUBCUT SCH ×4 (09:13→21:34)
[2022-05-26] MEDS: PANTOPRAZOLE 40 MG TABLET PO SCH (09:13)
[2022-05-26] MEDS: METOPROLOL TARTRATE 50 MG TABLET PO SCH (21:34)
[2022-05-26] MEDS: FERROUS SULFATE 325 MG TABLET PO SCH (21:34)
[2022-05-26] MEDS: ATORVASTATIN 10 MG TABLET PO SCH (21:34)
[2022-05-27 05:28] LABS: INR 4.3; PT Patient Result 42.4 SECS (10.1-12.1)
[2022-05-27 05:30] LABS: Basophils # 0.1 10*3/uL (0.0-0.2); Basophils % 0.7 % (0.0-0.8); Eosinophils # 0.2 10*3/uL (0.0-0.87); Eosinophils % 2.1 % (0.00-10.9); Hematocrit 26.1 VOL% (35.7-47.0); Hemoglobin 7.9 GM/DL (12.0-16.0); Immature Granulocytes % 0.9 %; Immature Granulocytes Absolute 0.08 #; Lymphocytes # 2.3 10*3/uL (1.4-4.0); Lymphocytes % 26.5 % (21.3-54.2); Mean Corpuscular HGB Conc 30.3 GM/DL (32-36); Mean Corpuscular Volume 94.2 FL (87-102); Mean Platelet Volume 10.2 FL (9.6-12.0); Monocytes # 0.5 10*3/uL (0.11-0.8); Monocytes % 5.5 % (1.7-12.7); NRBC # 0.14 10*3/uL; Neutrophils % 64.3 % (38.7-73.9); Platelet Count 284 T/CUMM (130-400); Red Blood Count 2.77 MC/CUMM (3.8-5.5); Red Cell Distribution Width 17.9 % (9.3-17.3); White Blood Count 8.5 T/CUMM (4-12)
[2022-05-27] MEDS: LEVOTHYROXINE 75 MCG TABLET PO SCH (05:30)
[2022-05-27 05:43] LABS: Calcium 8.6 MG/DL (8.5-10.1); Osmolality,Calculated 277.2 MOS/KG (273-304); Potassium 2.8 MMOL/L (3.5-5.1)
[2022-05-27] MEDS: INSULIN LISPRO 100 UNIT/ML SUBCUT SCH ×4 (07:39→21:37)
[2022-05-27] MEDS: ACETAMINOPHEN 325 MG TABLET PO PRN (07:40)
[2022-05-27] MEDS: METOPROLOL TARTRATE 50 MG TABLET PO SCH ×2 (08:23→21:37)
[2022-05-27] MEDS: FUROSEMIDE 40 MG/4 ML VIAL IV SCH ×2 (08:23→16:50)
[2022-05-27] MEDS: DULoxetine 30 MG CAPSULE PO SCH (09:10)
[2022-05-27] MEDS: FERROUS SULFATE 325 MG TABLET PO SCH ×2 (09:10→21:37)
[2022-05-27] MEDS: POTASSIUM CHLORIDE 20 MEQ TABLET PO SCH (09:10)
[2022-05-27] MEDS: PANTOPRAZOLE 40 MG TABLET PO SCH (09:10)
[2022-05-27] MEDS: ASPIRIN EC 81 MG TABLET PO SCH (09:10)
[2022-05-27] MEDS ORDERED: MAGNESIUM SULF RIDER 2 GM/50 ML PREMIX IV ONE (11:01)
[2022-05-27] MEDS: SPIRONOLACTONE 25 MG TABLET PO SCH (12:04)
[2022-05-27] MEDS: POTASSIUM CHLORIDE 20 MEQ TABLET PO PRN ×3 (12:04→16:50)
[2022-05-27 13:58] LABS: Calcium 8.3 MG/DL (8.5-10.1); Osmolality,Calculated 281.4 MOS/KG (273-304); Potassium 3.6 MMOL/L (3.5-5.1)
[2022-05-27] MEDS ORDERED: INSULIN GLARGINE 100 UNIT/ML SUBCUT SCH (21:00)
[2022-05-27] MEDS: ATORVASTATIN 10 MG TABLET PO SCH (21:37)
[2022-05-28] MEDS ORDERED: ALBUTEROL/IPRATROPIUM 3 ML NEB RESP TX ONE (01:24)
[2022-05-28] MEDS: ALBUTEROL/IPRATROPIUM 3 ML NEB RESP TX SCH ×2 (02:00→18:55)
[2022-05-28] MEDS: LEVOTHYROXINE 75 MCG TABLET PO SCH (06:25)
[2022-05-28 06:31] LABS: INR 2.5; PT Patient Result 25.6 SECS (10.1-12.1)
[2022-05-28 06:56] LABS: Albumin 3.1 G/DL (3.4-5.0); Bilirubin,Total 1.5 MG/DL (0.20-1.00); Calcium 8.8 MG/DL (8.5-10.1); Osmolality,Calculated 274.1 MOS/KG (273-304); Potassium 3.3 MMOL/L (3.5-5.1); Total Protein 6.7 G/DL (6.4-8.2)
[2022-05-28 09:17] LABS: Basophils # 0.1 10*3/uL (0.0-0.2); Basophils % 0.7 % (0.0-0.8); Eosinophils # 0.3 10*3/uL (0.0-0.87); Eosinophils % 2.6 % (0.00-10.9); Hematocrit 26.4 VOL% (35.7-47.0); Hemoglobin 7.8 GM/DL (12.0-16.0); Lymphocytes # 2.3 10*3/uL (1.4-4.0); Lymphocytes % 23.1 % (21.3-54.2); Mean Corpuscular HGB Conc 29.5 GM/DL (32-36); Mean Platelet Volume 10.4 FL (9.6-12.0); Monocytes # 0.5 10*3/uL (0.11-0.8); Monocytes % 5.2 % (1.7-12.7); NRBC # 0.07 10*3/uL; Neutrophils % 67.4 % (38.7-73.9); Platelet Count 317 T/CUMM (130-400); Red Blood Count 2.75 MC/CUMM (3.8-5.5); Red Cell Distribution Width 18.3 % (9.3-17.3); White Blood Count 9.9 T/CUMM (4-12)
[2022-05-28] MEDS: FUROSEMIDE 40 MG/4 ML VIAL IV SCH (09:31)
[2022-05-28] MEDS: ASPIRIN EC 81 MG TABLET PO SCH (09:31)
[2022-05-28] MEDS: POTASSIUM CHLORIDE 20 MEQ TABLET PO SCH (09:32)
[2022-05-28] MEDS: FERROUS SULFATE 325 MG TABLET PO SCH ×2 (09:32→20:46)
[2022-05-28] MEDS: DULoxetine 30 MG CAPSULE PO SCH (09:32)
[2022-05-28] MEDS: SPIRONOLACTONE 25 MG TABLET PO SCH (09:33)
[2022-05-28] MEDS ORDERED: SODIUM CHLORIDE 0.9% 1,000 ML IV PRN (12:49)
[2022-05-28 13:02] LABS: Bilirubin,Urine Negative (Negative); Blood, Urine Large mg/dL (Negative); Glucose,Urine (UA) Negative (Negative); Ketones,Urine Negative (Negative); Nitrite,Urine Negative (Negative); Protein,Urine Negative (Negative); Urine Appearance Clear (Clear); Urine Color Straw (Yellow); Urine Urobilinogen 0.2 eU/dL (<2.0)
[2022-05-28 13:08] LABS: RBC,Urine <1 /HPF (0-4)
[2022-05-28] MEDS: INSULIN LISPRO 100 UNIT/ML SUBCUT SCH (15:20)
[2022-05-28] MEDS: ATORVASTATIN 10 MG TABLET PO SCH (20:45)
[2022-05-28] MEDS: METOPROLOL TARTRATE 25 MG TABLET PO SCH (20:46)
[2022-05-28] MEDS: ACETAMINOPHEN 325 MG TABLET PO PRN (20:46)
[2022-05-28] MEDS ORDERED: INSULIN GLARGINE 100 UNIT/ML SUBCUT SCH (21:00)
[2022-05-29] MEDS: ALBUTEROL/IPRATROPIUM 3 ML NEB RESP TX SCH ×4 (00:30→19:58)
[2022-05-29 06:28] LABS: Basophils % 0.4 % (0.0-0.8); Eosinophils # 0.1 10*3/uL (0.0-0.87); Eosinophils % 1.1 % (0.00-10.9); Hematocrit 25.1 VOL% (35.7-47.0); Hemoglobin 7.5 GM/DL (12.0-16.0); Immature Granulocytes Absolute 0.09 #; Lymphocytes # 1.9 10*3/uL (1.4-4.0); Lymphocytes % 21.8 % (21.3-54.2); Mean Corpuscular HGB Conc 29.9 GM/DL (32-36); Mean Corpuscular Volume 94.7 FL (87-102); Mean Platelet Volume 10.3 FL (9.6-12.0); Monocytes # 0.5 10*3/uL (0.11-0.8); Monocytes % 6.1 % (1.7-12.7); NRBC # 0.07 10*3/uL; Neutrophils % 69.6 % (38.7-73.9); Platelet Count 309 T/CUMM (130-400); Red Blood Count 2.65 MC/CUMM (3.8-5.5); Red Cell Distribution Width 17.6 % (9.3-17.3); White Blood Count 8.9 T/CUMM (4-12)
[2022-05-29 06:44] LABS: INR 1.5; PT Patient Result 15.7 SECS (10.1-12.1)
[2022-05-29] MEDS: LEVOTHYROXINE 75 MCG TABLET PO SCH (06:47)
[2022-05-29 07:07] LABS: Osmolality,Calculated 272.5 MOS/KG (273-304); Potassium 3.4 MMOL/L (3.5-5.1)
[2022-05-29] MEDS: DOXYCYCLINE HYCLATE INJ 100 MG in SODIUM CHLORIDE 0.9% 100 ML IV SCH ×3 (08:45→13:21)
[2022-05-29] MEDS: DULoxetine 30 MG CAPSULE PO SCH (08:45)
[2022-05-29] MEDS: ASPIRIN EC 81 MG TABLET PO SCH (08:46)
[2022-05-29] MEDS: FERROUS SULFATE 325 MG TABLET PO SCH ×2 (08:46→20:58)
[2022-05-29] MEDS: SPIRONOLACTONE 25 MG TABLET PO SCH (08:47)
[2022-05-29] MEDS: METOPROLOL TARTRATE 25 MG TABLET PO SCH ×2 (08:48→20:58)
[2022-05-29] MEDS: POTASSIUM CHLORIDE 20 MEQ TABLET PO SCH (08:48)
[2022-05-29] MEDS: PANTOPRAZOLE 40 MG TABLET PO SCH ×2 (08:49→11:28)
[2022-05-29] MEDS: FUROSEMIDE 40 MG/4 ML VIAL IV SCH ×2 (08:50→11:22)
[2022-05-29] MEDS: INSULIN LISPRO 100 UNIT/ML SUBCUT SCH ×7 (09:08→20:59)
[2022-05-29] MEDS: methylPREDNISolone SOD SUC 40 MG/1 ML VIAL IV SCH ×4 (09:18→20:59)
[2022-05-29] MEDS: AZTREONAM 2,000 MG in SODIUM CHLORIDE 0.9% 100 ML IV SCH ×4 (11:22→17:32)
[2022-05-29] MEDS: WARFARIN 5 MG TABLET PO SCH ×2 (11:24→17:28)
[2022-05-29] MEDS ORDERED: POTASSIUM CHLORIDE 20 MEQ TABLET PO ONE (12:22)
[2022-05-29] MEDS: POLYETHYLENE GLYCOL POWDER 17 GM PACK PO SCH (13:29)
[2022-05-29 14:32] LABS: Calcium 8.7 MG/DL (8.5-10.1); Osmolality,Calculated 279.8 MOS/KG (273-304); Potassium 3.7 MMOL/L (3.5-5.1)
[2022-05-29] MEDS: METOPROLOL TARTRATE 50 MG TABLET PO SCH (16:41)
[2022-05-29] MEDS ORDERED: FUROSEMIDE 40 MG/4 ML VIAL IV SCH (18:00)
[2022-05-29] MEDS ORDERED: WARFARIN 3 MG TABLET PO SCH (18:00)
[2022-05-29 18:58] LABS: Hematocrit 31.3 VOL% (35.7-47.0); Hemoglobin 9.6 GM/DL (12.0-16.0)
[2022-05-29] MEDS: ATORVASTATIN 10 MG TABLET PO SCH (20:58)
[2022-05-29] MEDS ORDERED: INSULIN GLARGINE 100 UNIT/ML SUBCUT SCH (21:00)
[2022-05-30] MEDS: AZTREONAM 2,000 MG in SODIUM CHLORIDE 0.9% 100 ML IV SCH ×3 (02:25→20:00)
[2022-05-30] MEDS: ALBUTEROL/IPRATROPIUM 3 ML NEB RESP TX SCH ×4 (03:17→19:47)
[2022-05-30 05:03] LABS: INR 1.2; PT Patient Result 13.5 SECS (10.1-12.1)
[2022-05-30 05:17] LABS: Bilirubin,Total 1.1 MG/DL (0.20-1.00); Calcium 9.3 MG/DL (8.5-10.1); Osmolality,Calculated 279.7 MOS/KG (273-304); Potassium 3.5 MMOL/L (3.5-5.1); Total Protein 6.9 G/DL (6.4-8.2)
[2022-05-30] MEDS: LEVOTHYROXINE 75 MCG TABLET PO SCH (06:16)
[2022-05-30 06:35] LABS: Basophils % 0.1 % (0.0-0.8); Hematocrit 27.4 VOL% (35.7-47.0); Hemoglobin 8.3 GM/DL (12.0-16.0); Immature Granulocytes % 1.2 %; Immature Granulocytes Absolute 0.17 #; Lymphocytes % 7.5 % (21.3-54.2); Mean Corpuscular HGB Conc 30.3 GM/DL (32-36); Mean Corpuscular Volume 94.8 FL (87-102); Mean Platelet Volume 10.6 FL (9.6-12.0); Monocytes # 0.4 10*3/uL (0.11-0.8); Monocytes % 3.1 % (1.7-12.7); NRBC # 0.05 10*3/uL; Neutrophils % 88.1 % (38.7-73.9); Platelet Count 333 T/CUMM (130-400); Red Blood Count 2.89 MC/CUMM (3.8-5.5); Red Cell Distribution Width 17.2 % (9.3-17.3); White Blood Count 13.8 T/CUMM (4-12)
[2022-05-30] MEDS: metOLazone 5 MG TABLET PO SCH (07:27)
[2022-05-30] MEDS: FUROSEMIDE 40 MG/4 ML VIAL IV SCH ×2 (08:12→16:27)
[2022-05-30] MEDS: INSULIN LISPRO 100 UNIT/ML SUBCUT SCH ×4 (09:44→21:11)
[2022-05-30] MEDS: DOCUSATE SODIUM 100 MG CAPSULE PO SCH (09:45)
[2022-05-30] MEDS: ASPIRIN EC 81 MG TABLET PO SCH (09:46)
[2022-05-30] MEDS: DULoxetine 30 MG CAPSULE PO SCH (09:46)
[2022-05-30] MEDS: POTASSIUM CHLORIDE 20 MEQ TABLET PO SCH (09:46)
[2022-05-30] MEDS: FERROUS SULFATE 325 MG TABLET PO SCH ×2 (09:46→21:06)
[2022-05-30] MEDS: POLYETHYLENE GLYCOL POWDER 17 GM PACK PO SCH (09:47)
[2022-05-30] MEDS: PANTOPRAZOLE 40 MG TABLET PO SCH (09:47)
[2022-05-30] MEDS: METOPROLOL TARTRATE 25 MG TABLET PO SCH ×2 (09:47→21:06)
[2022-05-30] MEDS: SPIRONOLACTONE 25 MG TABLET PO SCH (09:47)
[2022-05-30] MEDS ORDERED: INSULIN GLARGINE 100 UNIT/ML SUBCUT ONE (12:24)
[2022-05-30 13:07] LABS: Hemoglobin 9.1 GM/DL (12.0-16.0)
[2022-05-30] MEDS: DOXYCYCLINE HYCLATE INJ 100 MG in SODIUM CHLORIDE 0.9% 100 ML IV SCH ×3 (13:15→23:29)
[2022-05-30] MEDS: HEPARIN DRIP 25,000 UNITS/500 ML PREMIX IV SCH (16:27)
[2022-05-30] MEDS: glipiZIDE 10 MG TABLET PO SCH (16:28)
[2022-05-30] MEDS ORDERED: WARFARIN 5 MG TABLET PO SCH (18:00)
[2022-05-30] MEDS ORDERED: METOPROLOL TARTRATE 5 MG/5 ML VIAL IV ONE (18:00)
[2022-05-30] MEDS: METOPROLOL TARTRATE 5 MG/5 ML VIAL IV SCH ×2 (18:17→18:25)
[2022-05-30] MEDS ORDERED: SODIUM CHLORIDE 0.9% 250 ML IV ONE (18:30)
[2022-05-30] MEDS: DILTIAZEM INJ 100 MG in SODIUM CHLORIDE 0.9% 100 ML IV SCH (19:14)
[2022-05-30 19:36] LABS: Calcium 10.1 MG/DL (8.5-10.1); Osmolality,Calculated 271.2 MOS/KG (273-304); Potassium 2.9 MMOL/L (3.5-5.1)
[2022-05-30] MEDS ORDERED: POTASSIUM CHLORIDE 20 MEQ TABLET PO ONE ×2 (20:37→23:00)
[2022-05-30] MEDS ORDERED: INSULIN GLARGINE 100 UNIT/ML SUBCUT SCH (21:00)
[2022-05-30] MEDS: ATORVASTATIN 10 MG TABLET PO SCH (21:06)
[2022-05-30] MEDS: INSULIN GLARGINE 100 UNIT/ML SUBCUT SCH (21:06)
[2022-05-30] MEDS ORDERED: DIGOXIN 0.5 MG/2 ML AMP IV ONE (21:45)
[2022-05-30 21:48] LABS: Hematocrit 29.5 VOL% (35.7-47.0); Hemoglobin 9.2 GM/DL (12.0-16.0)
[2022-05-30] MEDS ORDERED: HEPARIN 5,000 UNIT/1 ML VIAL IV ONE (23:15)
[2022-05-30] MEDS ORDERED: AMIODARONE INJ 450 MG in DEXTROSE 5% 241 ML IV SCH (23:30)
[2022-05-30] MEDS ORDERED: AMIODARONE INJ 150 MG in DEXTROSE 5% 100 ML IV ONE (23:30)
[2022-05-31] MEDS: DILTIAZEM INJ 100 MG in SODIUM CHLORIDE 0.9% 100 ML IV SCH ×4 (00:29→20:28)
[2022-05-31] MEDS: ALBUTEROL/IPRATROPIUM 3 ML NEB RESP TX SCH ×4 (00:39→19:57)
[2022-05-31] MEDS: AZTREONAM 2,000 MG in SODIUM CHLORIDE 0.9% 100 ML IV SCH ×3 (02:00→17:52)
[2022-05-31 04:46] LABS: Hematocrit 30.1 VOL% (35.7-47.0); Hemoglobin 9.1 GM/DL (12.0-16.0)
[2022-05-31 04:48] LABS: Basophils # 0.1 10*3/uL (0.0-0.2); Basophils % 0.5 % (0.0-0.8); Eosinophils # 0.2 10*3/uL (0.0-0.87); Eosinophils % 1.4 % (0.00-10.9); Hemoglobin 9.1 GM/DL (12.0-16.0); Immature Granulocytes % 0.9 %; Immature Granulocytes Absolute 0.14 #; Lymphocytes # 3.9 10*3/uL (1.4-4.0); Mean Corpuscular HGB Conc 30.3 GM/DL (32-36); Mean Corpuscular Volume 93.8 FL (87-102); Mean Platelet Volume 10.1 FL (9.6-12.0); Monocytes # 0.7 10*3/uL (0.11-0.8); Monocytes % 4.8 % (1.7-12.7); NRBC # 0.17 10*3/uL; Neutrophils % 66.4 % (38.7-73.9); Platelet Count 411 T/CUMM (130-400); Red Cell Distribution Width 17.1 % (9.3-17.3); White Blood Count 14.9 T/CUMM (4-12)
[2022-05-31 05:08] LABS: Albumin 3.1 G/DL (3.4-5.0); Bilirubin,Total 1.2 MG/DL (0.20-1.00); Calcium 9.2 MG/DL (8.5-10.1); Osmolality,Calculated 269.7 MOS/KG (273-304); Potassium 3.2 MMOL/L (3.5-5.1); Total Protein 7.2 G/DL (6.4-8.2)
[2022-05-31 05:16] LABS: INR 1.7; PT Patient Result 17.6 SECS (10.1-12.1)
[2022-05-31] MEDS: POTASSIUM CHLORIDE 20 MEQ TABLET PO PRN ×2 (05:45→13:57)
[2022-05-31] MEDS: LEVOTHYROXINE 75 MCG TABLET PO SCH (05:45)
[2022-05-31 05:49] LABS: Hepatitis B Core IgM Quant 0.06 Index; Hepatitis B Surface Ag Quant < 0.10 Index; Hepatitis B Surface Ag Result Non-Reactive (NonReactive); Hepatitis C Virus Ab Quant 0.04 Index; Hepatitis C Virus Ab Result Non-Reactive (NonReactive)
[2022-05-31] MEDS: AMIODARONE INJ 450 MG in DEXTROSE 5% 241 ML IV SCH (07:40)
[2022-05-31] MEDS ORDERED: methylPREDNISolone SOD SUC 40 MG/1 ML VIAL IV SCH (09:00)
[2022-05-31] MEDS: metOLazone 5 MG TABLET PO SCH (10:08)
[2022-05-31] MEDS: POTASSIUM CHLORIDE 20 MEQ TABLET PO SCH (10:08)
[2022-05-31] MEDS: DULoxetine 30 MG CAPSULE PO SCH (10:08)
[2022-05-31] MEDS: FERROUS SULFATE 325 MG TABLET PO SCH ×2 (10:08→22:14)
[2022-05-31] MEDS: PANTOPRAZOLE 40 MG TABLET PO SCH (10:08)
[2022-05-31] MEDS: glipiZIDE 10 MG TABLET PO SCH ×2 (10:08→17:52)
[2022-05-31] MEDS: ASPIRIN EC 81 MG TABLET PO SCH (10:08)
[2022-05-31] MEDS: SPIRONOLACTONE 25 MG TABLET PO SCH (10:09)
[2022-05-31] MEDS: INSULIN LISPRO 100 UNIT/ML SUBCUT SCH ×4 (10:09→22:22)
[2022-05-31] MEDS: DOCUSATE SODIUM 100 MG CAPSULE PO SCH (10:09)
[2022-05-31] MEDS: METOPROLOL TARTRATE 25 MG TABLET PO SCH ×2 (10:09→22:14)
[2022-05-31] MEDS: POLYETHYLENE GLYCOL POWDER 17 GM PACK PO SCH ×2 (10:10→22:16)
[2022-05-31] MEDS: FUROSEMIDE 40 MG/4 ML VIAL IV SCH ×2 (10:12→17:51)
[2022-05-31] MEDS: ACETAMINOPHEN 325 MG TABLET PO PRN (10:56)
[2022-05-31] MEDS: DOXYCYCLINE HYCLATE INJ 100 MG in SODIUM CHLORIDE 0.9% 100 ML IV SCH ×2 (10:59→23:54)
[2022-05-31] MEDS: HEPARIN DRIP 25,000 UNITS/500 ML PREMIX IV SCH ×2 (10:59→13:19)
[2022-05-31 12:52] LABS: Hemoglobin 9.4 GM/DL (12.0-16.0)
[2022-05-31] MEDS: HYDROCORTISONE 25 MG SUPP RECTAL SCH ×2 (16:01→22:08)
[2022-05-31] MEDS: INSULIN GLARGINE 100 UNIT/ML SUBCUT SCH (22:23)
[2022-06-01] MEDS: AMIODARONE INJ 450 MG in DEXTROSE 5% 241 ML IV SCH ×2 (00:59→17:01)
[2022-06-01] MEDS: HEPARIN DRIP 25,000 UNITS/500 ML PREMIX IV SCH ×2 (01:07→13:17)
[2022-06-01] MEDS: ALBUTEROL/IPRATROPIUM 3 ML NEB RESP TX SCH ×5 (01:50→23:44)
[2022-06-01] MEDS: AZTREONAM 2,000 MG in SODIUM CHLORIDE 0.9% 100 ML IV SCH ×3 (02:24→19:10)
[2022-06-01] MEDS: DILTIAZEM INJ 100 MG in SODIUM CHLORIDE 0.9% 100 ML IV SCH ×3 (03:23→19:10)
[2022-06-01 04:56] LABS: Basophils % 0.1 % (0.0-0.8); Eosinophils % 0.1 % (0.00-10.9); Hematocrit 28.3 VOL% (35.7-47.0); Hemoglobin 8.7 GM/DL (12.0-16.0); Immature Granulocytes % 1.1 %; Immature Granulocytes Absolute 0.18 #; Lymphocytes # 2.7 10*3/uL (1.4-4.0); Lymphocytes % 16.1 % (21.3-54.2); Mean Corpuscular HGB Conc 30.7 GM/DL (32-36); Mean Platelet Volume 10.1 FL (9.6-12.0); Monocytes # 0.9 10*3/uL (0.11-0.8); Monocytes % 5.1 % (1.7-12.7); NRBC # 0.11 10*3/uL; Neutrophils % 77.5 % (38.7-73.9); Platelet Count 462 T/CUMM (130-400); Red Blood Count 3.11 MC/CUMM (3.8-5.5); Red Cell Distribution Width 16.9 % (9.3-17.3); White Blood Count 16.8 T/CUMM (4-12)
[2022-06-01 05:16] LABS: INR 1.3
[2022-06-01 05:21] LABS: Albumin 3.2 G/DL (3.4-5.0); Calcium 9.7 MG/DL (8.5-10.1); Osmolality,Calculated 272.8 MOS/KG (273-304); Potassium 2.7 MMOL/L (3.5-5.1); Total Protein 7.1 G/DL (6.4-8.2)
[2022-06-01] MEDS: LEVOTHYROXINE 75 MCG TABLET PO SCH (05:36)
[2022-06-01] MEDS: POTASSIUM CHLORIDE 20 MEQ TABLET PO PRN ×3 (05:37→13:18)
[2022-06-01] MEDS ORDERED: predniSONE 20 MG TABLET PO SCH (09:00)
[2022-06-01] MEDS: POLYETHYLENE GLYCOL POWDER 17 GM PACK PO SCH ×2 (10:09→21:59)
[2022-06-01] MEDS: FUROSEMIDE 40 MG/4 ML VIAL IV SCH ×2 (10:10→17:01)
[2022-06-01] MEDS: DULoxetine 30 MG CAPSULE PO SCH (10:11)
[2022-06-01] MEDS: POTASSIUM CHLORIDE 20 MEQ TABLET PO SCH (10:11)
[2022-06-01] MEDS: glipiZIDE 10 MG TABLET PO SCH ×2 (10:11→17:02)
[2022-06-01] MEDS: ASPIRIN EC 81 MG TABLET PO SCH (10:11)
[2022-06-01] MEDS: METOPROLOL TARTRATE 25 MG TABLET PO SCH ×2 (10:12→21:58)
[2022-06-01] MEDS: PANTOPRAZOLE 40 MG TABLET PO SCH (10:12)
[2022-06-01] MEDS: DOCUSATE SODIUM 100 MG CAPSULE PO SCH (10:12)
[2022-06-01] MEDS: HYDROCORTISONE 25 MG SUPP RECTAL SCH ×2 (10:12→21:58)
[2022-06-01] MEDS: FERROUS SULFATE 325 MG TABLET PO SCH ×2 (10:12→21:59)
[2022-06-01] MEDS: SPIRONOLACTONE 25 MG TABLET PO SCH (10:12)
[2022-06-01] MEDS: INSULIN LISPRO 100 UNIT/ML SUBCUT SCH ×4 (10:13→21:59)
[2022-06-01] MEDS: metOLazone 5 MG TABLET PO SCH (10:16)
[2022-06-01 12:33] LABS: Calcium 9.5 MG/DL (8.5-10.1); Osmolality,Calculated 273.1 MOS/KG (273-304)
[2022-06-01] MEDS: DOXYCYCLINE HYCLATE INJ 100 MG in SODIUM CHLORIDE 0.9% 100 ML IV SCH ×2 (13:16→23:30)
[2022-06-01] MEDS ORDERED: POTASSIUM CHLORIDE 20 MEQ TABLET PO ONE (13:22)
[2022-06-01] MEDS ORDERED: MAGNESIUM SULF RIDER 2 GM/50 ML PREMIX IV ONE (13:23)
[2022-06-01] MEDS: WARFARIN 5 MG TABLET PO SCH (17:02)
[2022-06-01] MEDS: ACETAMINOPHEN 325 MG TABLET PO PRN (19:23)
[2022-06-01] MEDS: INSULIN GLARGINE 100 UNIT/ML SUBCUT SCH (22:01)
[2022-06-02] MEDS: AZTREONAM 2,000 MG in SODIUM CHLORIDE 0.9% 100 ML IV SCH ×3 (02:09→18:08)
[2022-06-02] MEDS: AMIODARONE INJ 450 MG in DEXTROSE 5% 241 ML IV SCH ×2 (03:45→09:46)
[2022-06-02 05:11] LABS: Basophils # 0.1 10*3/uL (0.0-0.2); Basophils % 0.3 % (0.0-0.8); Eosinophils % 0.3 % (0.00-10.9); Hemoglobin 9.1 GM/DL (12.0-16.0); Immature Granulocytes Absolute 0.15 #; Lymphocytes # 4.1 10*3/uL (1.4-4.0); Mean Corpuscular HGB Conc 30.3 GM/DL (32-36); Mean Corpuscular Volume 93.2 FL (87-102); Mean Platelet Volume 10.1 FL (9.6-12.0); Monocytes # 0.7 10*3/uL (0.11-0.8); Monocytes % 4.6 % (1.7-12.7); NRBC # 0.11 10*3/uL; Neutrophils % 66.8 % (38.7-73.9); Platelet Count 451 T/CUMM (130-400); Red Blood Count 3.22 MC/CUMM (3.8-5.5); White Blood Count 15.1 T/CUMM (4-12)
[2022-06-02 05:18] LABS: INR 1.2; PT Patient Result 12.6 SECS (10.1-12.1)
[2022-06-02 05:37] LABS: Calcium 9.5 MG/DL (8.5-10.1); Osmolality,Calculated 276.5 MOS/KG (273-304); Potassium 2.6 MMOL/L (3.5-5.1)
[2022-06-02] MEDS: LEVOTHYROXINE 75 MCG TABLET PO SCH (05:38)
[2022-06-02 05:46] LABS: Albumin 3.3 G/DL (3.4-5.0); Calcium 9.7 MG/DL (8.5-10.1); Osmolality,Calculated 280.2 MOS/KG (273-304); Total Protein 6.8 G/DL (6.4-8.2)
[2022-06-02] MEDS: ALBUTEROL/IPRATROPIUM 3 ML NEB RESP TX SCH ×3 (07:23→20:27)
[2022-06-02] MEDS: FUROSEMIDE 40 MG/4 ML VIAL IV SCH ×2 (08:02→16:33)
[2022-06-02] MEDS: DOCUSATE SODIUM 100 MG CAPSULE PO SCH (08:02)
[2022-06-02] MEDS: DULoxetine 30 MG CAPSULE PO SCH (08:02)
[2022-06-02] MEDS: PANTOPRAZOLE 40 MG TABLET PO SCH (08:02)
[2022-06-02] MEDS: glipiZIDE 10 MG TABLET PO SCH ×2 (08:02→16:33)
[2022-06-02] MEDS: POTASSIUM CHLORIDE 20 MEQ TABLET PO SCH (08:03)
[2022-06-02] MEDS: FERROUS SULFATE 325 MG TABLET PO SCH ×2 (08:03→21:33)
[2022-06-02] MEDS: SPIRONOLACTONE 25 MG TABLET PO SCH (08:03)
[2022-06-02] MEDS: METOPROLOL TARTRATE 25 MG TABLET PO SCH ×2 (08:03→21:32)
[2022-06-02] MEDS: ASPIRIN EC 81 MG TABLET PO SCH (08:03)
[2022-06-02] MEDS: POTASSIUM CHLORIDE RIDER 10 MEQ/100 ML PREMIX IV SCH ×4 (08:04→13:44)
[2022-06-02] MEDS: HYDROCORTISONE 25 MG SUPP RECTAL SCH ×2 (08:04→21:22)
[2022-06-02] MEDS: POLYETHYLENE GLYCOL POWDER 17 GM PACK PO SCH ×2 (08:52→21:34)
[2022-06-02] MEDS: INSULIN LISPRO 100 UNIT/ML SUBCUT SCH ×4 (08:52→21:22)
[2022-06-02] MEDS: DOXYCYCLINE HYCLATE INJ 100 MG in SODIUM CHLORIDE 0.9% 100 ML IV SCH ×2 (12:25→23:24)
[2022-06-02] MEDS: HEPARIN DRIP 25,000 UNITS/500 ML PREMIX IV SCH ×2 (12:44→18:08)
[2022-06-02] MEDS ORDERED: WARFARIN 5 MG TABLET PO SCH (18:00)
[2022-06-02] MEDS: WARFARIN 5 MG TABLET PO SCH (18:08)
[2022-06-02] MEDS: DILTIAZEM INJ 100 MG in SODIUM CHLORIDE 0.9% 100 ML IV SCH (18:33)
[2022-06-02] MEDS: INSULIN GLARGINE 100 UNIT/ML SUBCUT SCH (21:33)
[2022-06-03] MEDS: ALBUTEROL/IPRATROPIUM 3 ML NEB RESP TX SCH ×4 (02:30→19:40)
[2022-06-03] MEDS: AZTREONAM 2,000 MG in SODIUM CHLORIDE 0.9% 100 ML IV SCH ×3 (02:30→18:26)
[2022-06-03 04:24] LABS: Basophils # 0.1 10*3/uL (0.0-0.2); Basophils % 0.5 % (0.0-0.8); Eosinophils # 0.3 10*3/uL (0.0-0.87); Eosinophils % 2.4 % (0.00-10.9); Hematocrit 28.2 VOL% (35.7-47.0); Hemoglobin 8.4 GM/DL (12.0-16.0); Immature Granulocytes % 1.2 %; Immature Granulocytes Absolute 0.14 #; Lymphocytes # 2.9 10*3/uL (1.4-4.0); Lymphocytes % 24.4 % (21.3-54.2); Mean Corpuscular HGB Conc 29.8 GM/DL (32-36); Mean Corpuscular Volume 94.3 FL (87-102); Mean Platelet Volume 10.3 FL (9.6-12.0); Monocytes # 0.7 10*3/uL (0.11-0.8); Monocytes % 5.9 % (1.7-12.7); NRBC # 0.04 10*3/uL; Neutrophils % 65.6 % (38.7-73.9); Platelet Count 358 T/CUMM (130-400); Red Blood Count 2.99 MC/CUMM (3.8-5.5); Red Cell Distribution Width 17.1 % (9.3-17.3); White Blood Count 11.8 T/CUMM (4-12)
[2022-06-03 04:32] LABS: INR 1.9; PT Patient Result 19.6 SECS (10.1-12.1)
[2022-06-03 04:48] LABS: Calcium 9.2 MG/DL (8.5-10.1); Osmolality,Calculated 280.7 MOS/KG (273-304); Potassium 2.8 MMOL/L (3.5-5.1)
[2022-06-03] MEDS: LEVOTHYROXINE 75 MCG TABLET PO SCH (05:48)
[2022-06-03] MEDS: HEPARIN DRIP 25,000 UNITS/500 ML PREMIX IV SCH ×3 (08:47→22:10)
[2022-06-03] MEDS: FUROSEMIDE 40 MG/4 ML VIAL IV SCH ×2 (10:04→17:10)
[2022-06-03] MEDS: POTASSIUM CHLORIDE 20 MEQ TABLET PO SCH (10:07)
[2022-06-03] MEDS: PANTOPRAZOLE 40 MG TABLET PO SCH (10:07)
[2022-06-03] MEDS: ASPIRIN EC 81 MG TABLET PO SCH (10:08)
[2022-06-03] MEDS: HYDROCORTISONE 25 MG SUPP RECTAL SCH ×2 (10:08→21:20)
[2022-06-03] MEDS: DULoxetine 30 MG CAPSULE PO SCH (10:08)
[2022-06-03] MEDS: SPIRONOLACTONE 25 MG TABLET PO SCH (10:08)
[2022-06-03] MEDS: glipiZIDE 10 MG TABLET PO SCH ×2 (10:08→18:23)
[2022-06-03] MEDS: FERROUS SULFATE 325 MG TABLET PO SCH ×2 (10:09→21:15)
[2022-06-03] MEDS: DOCUSATE SODIUM 100 MG CAPSULE PO SCH (10:10)
[2022-06-03] MEDS: METOPROLOL TARTRATE 25 MG TABLET PO SCH ×2 (10:10→21:15)
[2022-06-03] MEDS: POLYETHYLENE GLYCOL POWDER 17 GM PACK PO SCH ×2 (10:13→21:20)
[2022-06-03] MEDS ORDERED: POTASSIUM CHLORIDE 20 MEQ TABLET PO ONE (10:47)
[2022-06-03] MEDS: INSULIN LISPRO 100 UNIT/ML SUBCUT SCH ×4 (10:54→21:16)
[2022-06-03] MEDS: DOXYCYCLINE HYCLATE INJ 100 MG in SODIUM CHLORIDE 0.9% 100 ML IV SCH (12:33)
[2022-06-03] MEDS: WARFARIN 5 MG TABLET PO SCH ×2 (18:23)
[2022-06-03] MEDS: DILTIAZEM INJ 100 MG in SODIUM CHLORIDE 0.9% 100 ML IV SCH (19:38)
[2022-06-03] MEDS: INSULIN GLARGINE 100 UNIT/ML SUBCUT SCH (21:17)
[2022-06-04] MEDS: ALBUTEROL/IPRATROPIUM 3 ML NEB RESP TX SCH ×4 (00:25→19:20)
[2022-06-04] MEDS: ACETAMINOPHEN 325 MG TABLET PO PRN ×2 (00:28→09:22)
[2022-06-04] MEDS: DOXYCYCLINE HYCLATE INJ 100 MG in SODIUM CHLORIDE 0.9% 100 ML IV SCH ×2 (00:29→14:12)
[2022-06-04] MEDS: MELATONIN 3 MG TABLET PO PRN ×2 (01:11→22:30)
[2022-06-04 01:54] LABS: Basophils # 0.1 10*3/uL (0.0-0.2); Basophils % 0.6 % (0.0-0.8); Eosinophils # 0.3 10*3/uL (0.0-0.87); Eosinophils % 3.2 % (0.00-10.9); Hematocrit 28.4 VOL% (35.7-47.0); Hemoglobin 8.5 GM/DL (12.0-16.0); Immature Granulocytes % 1.1 %; Immature Granulocytes Absolute 0.11 #; Lymphocytes # 2.7 10*3/uL (1.4-4.0); Lymphocytes % 26.1 % (21.3-54.2); Mean Corpuscular HGB Conc 29.9 GM/DL (32-36); Mean Corpuscular Volume 94.4 FL (87-102); Mean Platelet Volume 9.8 FL (9.6-12.0); Monocytes # 0.6 10*3/uL (0.11-0.8); Monocytes % 5.4 % (1.7-12.7); NRBC # 0.04 10*3/uL; Neutrophils % 63.6 % (38.7-73.9); Platelet Count 391 T/CUMM (130-400); Red Blood Count 3.01 MC/CUMM (3.8-5.5); White Blood Count 10.4 T/CUMM (4-12)
[2022-06-04 02:08] LABS: INR 1.6; PT Patient Result 16.7 SECS (10.1-12.1)
[2022-06-04 02:10] LABS: Calcium 9.3 MG/DL (8.5-10.1); Osmolality,Calculated 273.8 MOS/KG (273-304); Potassium 2.9 MMOL/L (3.5-5.1)
[2022-06-04] MEDS: AZTREONAM 2,000 MG in SODIUM CHLORIDE 0.9% 100 ML IV SCH ×3 (02:13→18:18)
[2022-06-04] MEDS: LEVOTHYROXINE 75 MCG TABLET PO SCH (05:59)
[2022-06-04] MEDS: POTASSIUM CHLORIDE 20 MEQ TABLET PO PRN ×3 (05:59→18:18)
[2022-06-04] MEDS: INSULIN LISPRO 100 UNIT/ML SUBCUT SCH ×4 (09:20→21:34)
[2022-06-04] MEDS: FUROSEMIDE 40 MG/4 ML VIAL IV SCH (09:21)
[2022-06-04] MEDS: SPIRONOLACTONE 25 MG TABLET PO SCH (09:23)
[2022-06-04] MEDS: POTASSIUM CHLORIDE 20 MEQ TABLET PO SCH (09:23)
[2022-06-04] MEDS: ASPIRIN EC 81 MG TABLET PO SCH (09:23)
[2022-06-04] MEDS: DOCUSATE SODIUM 100 MG CAPSULE PO SCH (09:23)
[2022-06-04] MEDS: DULoxetine 30 MG CAPSULE PO SCH (09:23)
[2022-06-04] MEDS: PANTOPRAZOLE 40 MG TABLET PO SCH (09:23)
[2022-06-04] MEDS: METOPROLOL TARTRATE 25 MG TABLET PO SCH ×2 (09:23→21:34)
[2022-06-04] MEDS: FERROUS SULFATE 325 MG TABLET PO SCH ×2 (09:23→21:34)
[2022-06-04] MEDS: HYDROCORTISONE 25 MG SUPP RECTAL SCH ×2 (09:24→21:34)
[2022-06-04] MEDS: POLYETHYLENE GLYCOL POWDER 17 GM PACK PO SCH ×2 (09:26→21:40)
[2022-06-04] MEDS: glipiZIDE 10 MG TABLET PO SCH ×2 (09:28→18:17)
[2022-06-04] MEDS ORDERED: SPIRONOLACTONE 25 MG TABLET PO ONE (09:52)
[2022-06-04] MEDS: HEPARIN DRIP 25,000 UNITS/500 ML PREMIX IV SCH ×2 (14:02→23:43)
[2022-06-04] MEDS ORDERED: WARFARIN 5 MG TABLET PO ONE (18:00)
[2022-06-04] MEDS: FUROSEMIDE 40 MG TABLET PO SCH (18:17)
[2022-06-04] MEDS: WARFARIN 5 MG TABLET PO SCH ×2 (18:17)
[2022-06-04] MEDS: DILTIAZEM INJ 100 MG in SODIUM CHLORIDE 0.9% 100 ML IV SCH (18:20)
[2022-06-04] MEDS: INSULIN GLARGINE 100 UNIT/ML SUBCUT SCH (21:36)
[2022-06-05] MEDS: ALBUTEROL/IPRATROPIUM 3 ML NEB RESP TX SCH ×5 (00:10→22:40)
[2022-06-05] MEDS: POTASSIUM CHLORIDE 20 MEQ TABLET PO PRN ×2 (02:30→06:46)
[2022-06-05] MEDS: LEVOTHYROXINE 75 MCG TABLET PO SCH (05:35)
[2022-06-05 06:05] LABS: Basophils # 0.1 10*3/uL (0.0-0.2); Basophils % 0.8 % (0.0-0.8); Eosinophils # 0.3 10*3/uL (0.0-0.87); Hematocrit 29.1 VOL% (35.7-47.0); Hemoglobin 8.6 GM/DL (12.0-16.0); Immature Granulocytes % 1.9 %; Immature Granulocytes Absolute 0.22 #; Lymphocytes # 2.7 10*3/uL (1.4-4.0); Lymphocytes % 23.7 % (21.3-54.2); Mean Corpuscular HGB Conc 29.6 GM/DL (32-36); Mean Corpuscular Volume 94.8 FL (87-102); Mean Platelet Volume 10.1 FL (9.6-12.0); Monocytes # 0.6 10*3/uL (0.11-0.8); Monocytes % 4.9 % (1.7-12.7); Neutrophils % 65.7 % (38.7-73.9); Platelet Count 388 T/CUMM (130-400); Red Blood Count 3.07 MC/CUMM (3.8-5.5); Red Cell Distribution Width 17.2 % (9.3-17.3); White Blood Count 11.3 T/CUMM (4-12)
[2022-06-05 06:17] LABS: PT Patient Result 21.2 SECS (10.1-12.1)
[2022-06-05 06:20] LABS: Calcium 9.4 MG/DL (8.5-10.1); Osmolality,Calculated 269.7 MOS/KG (273-304); Potassium 3.7 MMOL/L (3.5-5.1)
[2022-06-05] MEDS: HYDROCORTISONE 25 MG SUPP RECTAL SCH ×2 (10:07→22:27)
[2022-06-05] MEDS: DULoxetine 30 MG CAPSULE PO SCH (10:07)
[2022-06-05] MEDS: glipiZIDE 10 MG TABLET PO SCH ×2 (10:07→16:34)
[2022-06-05] MEDS: ASPIRIN EC 81 MG TABLET PO SCH (10:07)
[2022-06-05] MEDS: INSULIN LISPRO 100 UNIT/ML SUBCUT SCH ×4 (10:07→22:29)
[2022-06-05] MEDS: FERROUS SULFATE 325 MG TABLET PO SCH ×2 (10:08→22:27)
[2022-06-05] MEDS: METOPROLOL TARTRATE 25 MG TABLET PO SCH ×2 (10:08→22:27)
[2022-06-05] MEDS: POTASSIUM CHLORIDE 20 MEQ TABLET PO SCH (10:08)
[2022-06-05] MEDS: FUROSEMIDE 40 MG TABLET PO SCH ×2 (10:08→16:34)
[2022-06-05] MEDS: PANTOPRAZOLE 40 MG TABLET PO SCH (10:08)
[2022-06-05] MEDS: DOCUSATE SODIUM 100 MG CAPSULE PO SCH (10:08)
[2022-06-05] MEDS: POLYETHYLENE GLYCOL POWDER 17 GM PACK PO SCH ×2 (10:09→22:29)
[2022-06-05] MEDS: SPIRONOLACTONE 50 MG TABLET PO SCH (10:13)
[2022-06-05] MEDS: HEPARIN DRIP 25,000 UNITS/500 ML PREMIX IV SCH (12:28)
[2022-06-05] MEDS ORDERED: WARFARIN 5 MG TABLET PO ONE (18:00)
[2022-06-05] MEDS: DILTIAZEM INJ 100 MG in SODIUM CHLORIDE 0.9% 100 ML IV SCH (19:13)
[2022-06-05] MEDS: WARFARIN 5 MG TABLET PO SCH ×2 (19:19)
[2022-06-05] MEDS: INSULIN GLARGINE 100 UNIT/ML SUBCUT SCH (22:27)
[2022-06-06] MEDS: MELATONIN 3 MG TABLET PO PRN ×2 (00:01→21:28)
[2022-06-06 05:21] LABS: Basophils # 0.1 10*3/uL (0.0-0.2); Basophils % 0.7 % (0.0-0.8); Eosinophils # 0.3 10*3/uL (0.0-0.87); Eosinophils % 2.9 % (0.00-10.9); Hematocrit 30.3 VOL% (35.7-47.0); Immature Granulocytes % 1.4 %; Immature Granulocytes Absolute 0.15 #; Lymphocytes # 2.4 10*3/uL (1.4-4.0); Mean Corpuscular HGB Conc 29.7 GM/DL (32-36); Mean Corpuscular Volume 95.9 FL (87-102); Mean Platelet Volume 10.1 FL (9.6-12.0); Monocytes # 0.5 10*3/uL (0.11-0.8); Monocytes % 4.3 % (1.7-12.7); NRBC # 0.03 10*3/uL; Neutrophils % 67.7 % (38.7-73.9); Platelet Count 395 T/CUMM (130-400); Red Blood Count 3.16 MC/CUMM (3.8-5.5); White Blood Count 10.5 T/CUMM (4-12)
[2022-06-06] MEDS: LEVOTHYROXINE 75 MCG TABLET PO SCH (05:24)
[2022-06-06 05:37] LABS: Calcium 9.4 MG/DL (8.5-10.1); Osmolality,Calculated 280.1 MOS/KG (273-304); Potassium 3.5 MMOL/L (3.5-5.1)
[2022-06-06 05:49] LABS: Albumin 3.2 G/DL (3.4-5.0); Bilirubin,Direct 0.23 MG/DL (0.0-0.20); Bilirubin,Indirect 0.4 MG/DL (0.0-1.0); Bilirubin,Total 0.6 MG/DL (0.20-1.00); Total Protein 6.5 G/DL (6.4-8.2)
[2022-06-06 06:44] LABS: PT Patient Result 21.2 SECS (10.1-12.1)
[2022-06-06] MEDS: ALBUTEROL/IPRATROPIUM 3 ML NEB RESP TX SCH ×3 (07:07→20:17)
[2022-06-06] MEDS: ACETAMINOPHEN 325 MG TABLET PO PRN (08:25)
[2022-06-06] MEDS ORDERED: ALUM/MAG/SIMETH/LIDO VISC 1:1 30 ML BOTTLE PO ONE (08:38)
[2022-06-06] MEDS ORDERED: ONDANSETRON 4 MG/2 ML VIAL IV ONE (09:30)
[2022-06-06] MEDS: INSULIN LISPRO 100 UNIT/ML SUBCUT SCH ×4 (10:37→21:29)
[2022-06-06] MEDS: ASPIRIN EC 81 MG TABLET PO SCH (10:37)
[2022-06-06] MEDS: METOPROLOL TARTRATE 25 MG TABLET PO SCH ×2 (10:37→21:27)
[2022-06-06] MEDS: PANTOPRAZOLE 40 MG TABLET PO SCH (10:37)
[2022-06-06] MEDS: FUROSEMIDE 40 MG TABLET PO SCH ×2 (10:37→16:17)
[2022-06-06] MEDS: glipiZIDE 10 MG TABLET PO SCH ×2 (10:38→16:18)
[2022-06-06] MEDS: HYDROCORTISONE 25 MG SUPP RECTAL SCH ×2 (10:38→21:27)
[2022-06-06] MEDS: DULoxetine 30 MG CAPSULE PO SCH (10:38)
[2022-06-06] MEDS: POLYETHYLENE GLYCOL POWDER 17 GM PACK PO SCH ×2 (10:44→21:29)
[2022-06-06] MEDS: SPIRONOLACTONE 50 MG TABLET PO SCH (13:08)
[2022-06-06] MEDS: DOCUSATE SODIUM 100 MG CAPSULE PO SCH (13:10)
[2022-06-06] MEDS: FERROUS SULFATE 325 MG TABLET PO SCH ×2 (13:10→21:27)
[2022-06-06] MEDS: POTASSIUM CHLORIDE 20 MEQ TABLET PO SCH (13:11)
[2022-06-06] MEDS ORDERED: ALBUTEROL 2.5 MG/3 ML NEB RESP TX ONE ×2 (14:43→19:12)
[2022-06-06] MEDS: HEPARIN DRIP 25,000 UNITS/500 ML PREMIX IV SCH (16:14)
[2022-06-06] MEDS: NITROGLYCERIN 2% OINT 1 INCH/GM PACK TOP SCH ×2 (16:16→21:28)
[2022-06-06] MEDS: WARFARIN 5 MG TABLET PO SCH ×2 (18:49)
[2022-06-06] MEDS: DILTIAZEM INJ 100 MG in SODIUM CHLORIDE 0.9% 100 ML IV SCH (18:50)
[2022-06-06] MEDS ORDERED: IPRATROPIUM 500 MCG/2.5 ML NEB RESP TX ONE (19:12)
[2022-06-06] MEDS: INSULIN GLARGINE 100 UNIT/ML SUBCUT SCH (21:28)
[2022-06-07] MEDS ORDERED: IPRATROPIUM 500 MCG/2.5 ML NEB RESP TX ONE (01:13)
[2022-06-07] MEDS ORDERED: ALBUTEROL 2.5 MG/3 ML NEB RESP TX ONE (01:13)
[2022-06-07] MEDS: ALBUTEROL/IPRATROPIUM 3 ML NEB RESP TX SCH ×4 (02:02→18:52)
[2022-06-07] MEDS: NITROGLYCERIN 2% OINT 1 INCH/GM PACK TOP SCH ×2 (03:09→09:50)
[2022-06-07 05:05] LABS: Basophils # 0.1 10*3/uL (0.0-0.2); Basophils % 0.5 % (0.0-0.8); Eosinophils # 0.2 10*3/uL (0.0-0.87); Eosinophils % 1.9 % (0.00-10.9); Hematocrit 28.1 VOL% (35.7-47.0); Hemoglobin 8.5 GM/DL (12.0-16.0); Immature Granulocytes % 1.8 %; Immature Granulocytes Absolute 0.21 #; Lymphocytes # 2.3 10*3/uL (1.4-4.0); Lymphocytes % 19.4 % (21.3-54.2); Mean Corpuscular HGB Conc 30.2 GM/DL (32-36); Mean Corpuscular Volume 94.9 FL (87-102); Mean Platelet Volume 10.2 FL (9.6-12.0); Monocytes # 0.6 10*3/uL (0.11-0.8); NRBC # 0.03 10*3/uL; Neutrophils % 71.4 % (38.7-73.9); Platelet Count 340 T/CUMM (130-400); Red Blood Count 2.96 MC/CUMM (3.8-5.5); Red Cell Distribution Width 16.7 % (9.3-17.3); White Blood Count 11.7 T/CUMM (4-12)
[2022-06-07 05:15] LABS: INR 3.1
[2022-06-07 05:27] LABS: Calcium 9.6 MG/DL (8.5-10.1); Osmolality,Calculated 279.5 MOS/KG (273-304); Potassium 3.7 MMOL/L (3.5-5.1)
[2022-06-07] MEDS: LEVOTHYROXINE 75 MCG TABLET PO SCH (05:33)
[2022-06-07] MEDS: HEPARIN DRIP 25,000 UNITS/500 ML PREMIX IV SCH (05:36)
[2022-06-07] MEDS: INSULIN LISPRO 100 UNIT/ML SUBCUT SCH ×6 (08:45→22:01)
[2022-06-07] MEDS: ASPIRIN EC 81 MG TABLET PO SCH (09:50)
[2022-06-07] MEDS: HYDROCORTISONE 25 MG SUPP RECTAL SCH ×2 (09:50→22:00)
[2022-06-07] MEDS: FUROSEMIDE 40 MG TABLET PO SCH ×2 (09:50→17:35)
[2022-06-07] MEDS: SPIRONOLACTONE 50 MG TABLET PO SCH (09:50)
[2022-06-07] MEDS: METOPROLOL TARTRATE 25 MG TABLET PO SCH (09:50)
[2022-06-07] MEDS: ACETAMINOPHEN 325 MG TABLET PO PRN (09:58)
[2022-06-07] MEDS ORDERED: GLUCAGON 1 MG VIAL IM PRN (11:11)
[2022-06-07] MEDS: DULoxetine 30 MG CAPSULE PO SCH (14:31)
[2022-06-07] MEDS: POTASSIUM CHLORIDE 20 MEQ TABLET PO SCH (14:32)
[2022-06-07] MEDS: ISOSORBIDE MONONITRATE 60 MG TABLET PO SCH (14:32)
[2022-06-07] MEDS: DOCUSATE SODIUM 100 MG CAPSULE PO SCH (14:32)
[2022-06-07] MEDS: FERROUS SULFATE 325 MG TABLET PO SCH ×2 (14:32→22:00)
[2022-06-07] MEDS: glipiZIDE 10 MG TABLET PO SCH ×2 (14:32→17:34)
[2022-06-07] MEDS: PANTOPRAZOLE 40 MG TABLET PO SCH (14:33)
[2022-06-07] MEDS: ASCORBIC ACID 500 MG TABLET PO SCH ×2 (14:33→22:00)
[2022-06-07] MEDS: POLYETHYLENE GLYCOL POWDER 17 GM PACK PO SCH ×2 (14:37→22:02)
[2022-06-07] MEDS: WARFARIN 5 MG TABLET PO SCH ×2 (17:35)
[2022-06-07] MEDS: DILTIAZEM INJ 100 MG in SODIUM CHLORIDE 0.9% 100 ML IV SCH (17:37)
[2022-06-07] MEDS: METOPROLOL TARTRATE 50 MG TABLET PO SCH (22:00)
[2022-06-07] MEDS: MELATONIN 3 MG TABLET PO PRN (22:00)
[2022-06-07] MEDS: INSULIN GLARGINE 100 UNIT/ML SUBCUT SCH (22:02)
[2022-06-08] MEDS ORDERED: ALBUTEROL 2.5 MG/3 ML NEB RESP TX ONE ×3 (00:42→12:53)
[2022-06-08] MEDS ORDERED: IPRATROPIUM 500 MCG/2.5 ML NEB RESP TX ONE ×3 (00:43→12:53)
[2022-06-08] MEDS: ALBUTEROL/IPRATROPIUM 3 ML NEB RESP TX SCH ×4 (01:09→19:36)
[2022-06-08 05:18] LABS: Basophils % 0.3 % (0.0-0.8); Eosinophils # 0.2 10*3/uL (0.0-0.87); Eosinophils % 2.4 % (0.00-10.9); Hematocrit 26.6 VOL% (35.7-47.0); Hemoglobin 7.9 GM/DL (12.0-16.0); Immature Granulocytes % 1.6 %; Immature Granulocytes Absolute 0.15 #; Lymphocytes # 2.2 10*3/uL (1.4-4.0); Lymphocytes % 22.9 % (21.3-54.2); Mean Corpuscular HGB Conc 29.7 GM/DL (32-36); Mean Corpuscular Volume 95.3 FL (87-102); Mean Platelet Volume 10.2 FL (9.6-12.0); Monocytes # 0.5 10*3/uL (0.11-0.8); Monocytes % 5.5 % (1.7-12.7); NRBC # 0.02 10*3/uL; Neutrophils % 67.3 % (38.7-73.9); Platelet Count 312 T/CUMM (130-400); Red Blood Count 2.79 MC/CUMM (3.8-5.5); Red Cell Distribution Width 16.6 % (9.3-17.3); White Blood Count 9.5 T/CUMM (4-12)
[2022-06-08 05:38] LABS: Calcium 9.4 MG/DL (8.5-10.1); Osmolality,Calculated 275.4 MOS/KG (273-304)
[2022-06-08] MEDS: LEVOTHYROXINE 75 MCG TABLET PO SCH (06:19)
[2022-06-08 08:30] LABS: INR 3.4; PT Patient Result 34.5 SECS (10.1-12.1)
[2022-06-08] MEDS: ISOSORBIDE MONONITRATE 60 MG TABLET PO SCH (08:45)
[2022-06-08] MEDS: PANTOPRAZOLE 40 MG TABLET PO SCH (08:45)
[2022-06-08] MEDS: FERROUS SULFATE 325 MG TABLET PO SCH ×2 (08:45→21:51)
[2022-06-08] MEDS: FUROSEMIDE 40 MG TABLET PO SCH ×2 (08:45→17:20)
[2022-06-08] MEDS: DULoxetine 30 MG CAPSULE PO SCH (08:45)
[2022-06-08] MEDS: SPIRONOLACTONE 50 MG TABLET PO SCH (08:45)
[2022-06-08] MEDS: ASCORBIC ACID 500 MG TABLET PO SCH ×2 (08:45→21:44)
[2022-06-08] MEDS: POTASSIUM CHLORIDE 20 MEQ TABLET PO SCH (08:45)
[2022-06-08] MEDS: METOPROLOL TARTRATE 50 MG TABLET PO SCH ×2 (08:45→21:44)
[2022-06-08] MEDS: DOCUSATE SODIUM 100 MG CAPSULE PO SCH (08:45)
[2022-06-08] MEDS: glipiZIDE 10 MG TABLET PO SCH ×2 (08:46→17:20)
[2022-06-08] MEDS: HYDROCORTISONE 25 MG SUPP RECTAL SCH ×2 (08:46→21:12)
[2022-06-08] MEDS: INSULIN LISPRO 100 UNIT/ML SUBCUT SCH ×4 (08:46→21:12)
[2022-06-08] MEDS: ASPIRIN EC 81 MG TABLET PO SCH (08:46)
[2022-06-08] MEDS: POLYETHYLENE GLYCOL POWDER 17 GM PACK PO SCH ×2 (08:47→21:13)
[2022-06-08] MEDS: WARFARIN 5 MG TABLET PO SCH ×2 (17:20)
[2022-06-08] MEDS: DILTIAZEM INJ 100 MG in SODIUM CHLORIDE 0.9% 100 ML IV SCH (17:38)
[2022-06-08] MEDS: MELATONIN 3 MG TABLET PO PRN (21:43)
[2022-06-08] MEDS: INSULIN GLARGINE 100 UNIT/ML SUBCUT SCH (21:51)
[2022-06-08] MEDS ORDERED: LEVALBUTEROL 1.25 MG/3 ML NEB RESP TX ONE (22:58)
[2022-06-09] MEDS: ALBUTEROL/IPRATROPIUM 3 ML NEB RESP TX SCH ×2 (00:21→07:48)
[2022-06-09] MEDS: LEVOTHYROXINE 75 MCG TABLET PO SCH (05:16)
[2022-06-09 06:13] LABS: Basophils # 0.1 10*3/uL (0.0-0.2); Basophils % 0.6 % (0.0-0.8); Eosinophils # 0.2 10*3/uL (0.0-0.87); Eosinophils % 2.1 % (0.00-10.9); Hematocrit 27.8 VOL% (35.7-47.0); Hemoglobin 8.3 GM/DL (12.0-16.0); Immature Granulocytes % 1.5 %; Immature Granulocytes Absolute 0.14 #; Lymphocytes # 1.5 10*3/uL (1.4-4.0); Lymphocytes % 15.6 % (21.3-54.2); Mean Corpuscular HGB Conc 29.9 GM/DL (32-36); Mean Corpuscular Volume 94.6 FL (87-102); Mean Platelet Volume 10.3 FL (9.6-12.0); Monocytes # 0.5 10*3/uL (0.11-0.8); Monocytes % 5.5 % (1.7-12.7); NRBC # 0.05 10*3/uL; Neutrophils % 74.7 % (38.7-73.9); Platelet Count 322 T/CUMM (130-400); Red Blood Count 2.94 MC/CUMM (3.8-5.5); Red Cell Distribution Width 16.7 % (9.3-17.3); White Blood Count 9.6 T/CUMM (4-12)
[2022-06-09 06:28] LABS: Calcium 8.9 MG/DL (8.5-10.1); Osmolality,Calculated 277.4 MOS/KG (273-304); Potassium 4.1 MMOL/L (3.5-5.1)
[2022-06-09] MEDS ORDERED: MAGNESIUM SULF RIDER 2 GM/50 ML PREMIX IV ONE (07:42)
[2022-06-09 07:52] LABS: INR 3.2; PT Patient Result 32.9 SECS (10.1-12.1)
[2022-06-09] MEDS: INSULIN LISPRO 100 UNIT/ML SUBCUT SCH ×2 (09:44→12:30)
[2022-06-09] MEDS: POLYETHYLENE GLYCOL POWDER 17 GM PACK PO SCH (10:01)
[2022-06-09 12:39] VITALS: BP 98/51
[2022-06-09] MEDS: ASPIRIN EC 81 MG TABLET PO SCH (12:39)
[2022-06-09] MEDS: ASCORBIC ACID 500 MG TABLET PO SCH (12:39)
[2022-06-09] MEDS: glipiZIDE 10 MG TABLET PO SCH (12:40)
[2022-06-09] MEDS: METOPROLOL TARTRATE 50 MG TABLET PO SCH (12:40)
[2022-06-09] MEDS: FUROSEMIDE 40 MG TABLET PO SCH (12:40)
[2022-06-09] MEDS: POTASSIUM CHLORIDE 20 MEQ TABLET PO SCH (12:40)
[2022-06-09] MEDS: FERROUS SULFATE 325 MG TABLET PO SCH (12:40)
[2022-06-09] MEDS: HYDROCORTISONE 25 MG SUPP RECTAL SCH (12:40)
[2022-06-09] MEDS: ISOSORBIDE MONONITRATE 60 MG TABLET PO SCH (12:41)
[2022-06-09] MEDS: PANTOPRAZOLE 40 MG TABLET PO SCH (12:41)
[2022-06-09] MEDS: DULoxetine 30 MG CAPSULE PO SCH (12:41)
[2022-06-09] MEDS: SPIRONOLACTONE 50 MG TABLET PO SCH (12:41)
[2022-06-09] MEDS: DOCUSATE SODIUM 100 MG CAPSULE PO SCH (12:41)
[2022-06-09] MEDS: ACETAMINOPHEN 325 MG TABLET PO PRN (12:44)
== END 2022-06-09 15:10 | disposition home or self-care (01) | DRG 291 ==
LOC: N.EDINP 19:00 → N.ED 19:00 → SUATTDRO 05-26 04:27 → N.2W 05-26 08:49 → SUATTDRO 05-28 09:03 → N.3E 05-30 15:38 → N.TELEN 05-30 17:54
PROVIDERS: ADMIT Internal Medicine; ATTEND Internal Medicine